=== PATIENT | male | born 1975 | race Hispanic/Latino ===

== ENCOUNTER 2017-10-13 09:36 | Inpatient (IN) | payer BC, OTHER ==
[2017-10-13 10:38] LABS: Bilirubin Negative (Negative); Blood, Urine Moderate (Negative); Glucose, Urine (Dipstick) Negative (Negative); Leukocyte Negative (Negative); Nitrite Negative (Negative); Protein, Urine (Dipstick) 100 mg/dL (Neg-Trace); Urobilinogen 0.2 mg/dL (0.2-1.0)
[2017-10-13 10:40] LABS: Clarity Clear (Clear)
[2017-10-13 10:50] LABS: Squamous Epithelial 0-3 HPF (0-3); WBC/HPF 0-3 HPF (0-3)
[2017-10-13 10:51] LABS: Bacteria/HPF None Seen HPF (None Seen); Crystals/HPF RARE AMORPH URATES HPF (Negative); Hyaline Casts/LPF 0-3 HYALINE CAST LPF (0-3 Hyaline)
--- NOTE | 2017-10-13 11:01 | RAD ---
CHEST ONE VIEW: HISTORY: Fever. COMPARISON: Chest, one view, 01/24/2017. FINDINGS: The dialysis catheter is in place, with the tip at the right atrium. There are linear opacities in b oth lower lobes, suggesting atelectasis. No air space consolidation or significant effusion. IMPRESSION: Dialysis catheter tip at the cavoatrial junction with some linear atelectasis in both lower lobes. N o significant fluid overload. POS: [facility]
--- NOTE | 2017-10-13 11:14 | CT ---
NONCONTRAST CT ABDOMEN AND PELVIS: 10/13/2017 HISTORY: Abdominal pain with vomiting and diarrhea. COMPARISON: 07/13/2013 FINDINGS: There is partial visualization of a hemodialysis catheter, with the tip at the level of the cavoatria l junction. There is linear bibasilar atelectasis and/or scarring. There is a coarse calcification seen in the right hepatic lobe, also seen on the prior study of 2013, unchanged. A tiny calcified granuloma is seen at the inferior aspect, right hepatic lobe. The spleen, pancreas, bilateral adrenal glands, and left kidney demonstrate a grossly normal nonenhan reginaldo CT appearance. There is a subcentimeter, gsz-qnwsl-lc-characterize, hypodense lesion in the superior pole right kidn ey. No renal or ureteral calculi are seen bilaterally. the urinary bladder is decompressed and not well evaluated on this exam. The appendix is visualized and normal in caliber. There is a trace amount of free fluid in the pelvis, of uncertain etiology. Prominent atherosclerotic vascular calcifications are seen within the iliac and femoral arteries. Previously noted colonic wall thickening and pericolonic inflammatory changes on the prior study in 2 013 have resolved. IMPRESSION: 1. Trace amount of free fluid in the pelvis of uncertain etiology. There are, otherwise, no acute f indings seen in the abdomen or pelvis on this nonenhanced CT scan examination. 2. Tiny pericardial effusion. 3. Subcentimeter qlx-[id number]-[id number]-characterize hypodense lesion, superior pole, right kidney. No renal o r ureteral calculi are visualized. 4. Prominent atherosclerotic vascular calcifications, which do appear advanced for the patient's age . 5. No CT evidence of appendicitis. 6. Linear bibasilar atelectasis versus scarring. POS: [facility]
[2017-10-13 11:16] LABS: #Eosinphils 0.1 thou/uL (0.0-0.7); #Lymphocytes 0.7 thou/uL (1.20-3.40); #Monocytes 0.6 thou/uL (0.11-0.59); #Neutrophils 8.9 thou/uL (1.40-6.50); %Basophils 0.2 % (0.0-1.0); %Eosinophils 0.6 % (0.0-10.0); %Monocytes 5.6 % (0.0-10.0); %Neutrophils 86.6 % (42.0-75.0); Mean Corpuscular HGB CONC 32.5 g/dL (32.0-36.0); Mean Corpuscular Hemoglobin 32.5 pg (27.0-31.0); Mean Platelet Volume 8.5 fL (7.4-10.4); Platelet Count 136 thou/uL (130-400); RBC Distribution Width 13.7 % (11.5-14.5); Red Blood Cell (RBC) Count 5.23 mill/uL (4.70-6.10); White Blood Cell (WBC) Count 10.3 thou/uL (4.8-10.8)
[2017-10-13 11:17] LABS: ALT (SGPT) 9 U/L (8-55); AST (SGOT) 20 U/L (5-34); Albumin 4.3 g/dL (3.5-5.0); Alkaline Phosphatase 85 U/L (40-150); Anion Gap 15 mmol/L (10-20); BUN (Urea Nitrogen) 34 mg/dL (8.9-20.6); Bilirubin, Total 0.9 mg/dL (0.2-1.2); Calc. Creatinine Clearance 0 mL/min (70-130); Calcium 9.5 mg/dL (7.8-10.44); Carbon Dioxide 31 mmol/L (22-29); Chloride 95 mmol/L (98-107); Estimated GFR-MDRD 13; Glucose 82 mg/dL (70-105); Potassium 3.4 mmol/L (3.5-5.1); Protein, Total 8.3 g/dL (6.0-8.3); Sodium 138 mmol/L (136-145)
[2017-10-13] MEDS ORDERED: Morphine 4 MG/ML VIAL ONE (11:28)
[2017-10-13] MEDS ORDERED: Acetaminophen 500 MG TAB ONE (11:57)
[2017-10-13] MEDS ORDERED: Piperacillin/Tazobactam 4.5 GM in Sodium Chloride 0.9% 100 ML IVPB SCH (12:30)
--- NOTE | 2017-10-13 14:10 | HP ---
PRIMARY CARE PHYSICIAN: Angelo Montoya M.D. CHIEF COMPLAINT: Chills, cramps and back pain. HISTORY OF PRESENT ILLNESS: Mr. Nuñez is a pleasant 42-year-old gentleman that has a history of end- stage renal disease secondary to lupus nephritis. He also has a history of hypertension. He was in his usual state of health until Friday when he started noticing some pain, he says in his spine and b oth legs and he was feeling like his legs were weak. He also noted some chills as well. He says rsoe t this is taken through his daughter who is acting as red lead burner. He also says that he was having so me burning or pain when he tries to urinate and felt like he needed to go to the bathroom frequently. They thought he might have a urinary tract infection or kidney infection. He had gone to dialysis today and developed a high fever and this is the reason he was brought to the emergency room for eval uation. The urinalysis from the ER just showed some blood, but no evidence of nitrates being positiv e or any leukocytes or bacteria. However, with a history of fever as well as the fact that the patie nt is relatively immunosuppressed, he is being admitted for further evaluation. The patient's other complaints include some nausea, but no vomiting, but the symptoms seem to be localized mainly to the upper and lower back as well as some urinary tract symptoms. He is on dialysis, so it is difficult t o tell whether or not he has any urinary retention. REVIEW OF SYSTEMS: CONSTITUTIONAL: He has had subjective fever as well as chills, but no night swea ts, no weight loss. He continues to have a good appetite. HEENT: No headaches, no dizziness, no vi sual changes. He does notice some drainage from the right ear as well as some ear pain. No sore thr oat or rhinorrhea. He does complain of some pain on the left side of his neck. The patient has some visual loss due to glaucoma and also some redness of the eyes, which he says is fairly chronic. PUL MONARY: No hemoptysis, no cough, no wheezing. CARDIOVASCULAR: He denies any chest pain, no shortne ss of breath, no PND, and orthopnea. GASTROINTESTINAL: No abdominal pain. He had some nausea, but no vomiting, no diarrhea. GENITOURINARY: He has urinary frequency, no hematuria. MUSCULOSKELETAL: He is complaining of some pain in the left flank and also complains of some weakness in his legs whe n these chills come on. NEUROLOGIC: No seizures. No stroke-like symptoms. SKIN AND INTEGUMENT: N o skin changes. No rash. PAST MEDICAL HISTORY: Significant for end-stage renal disease secondary to lupus nephritis, hyperten ayse, hypothyroidism, depression, systemic lupus, history of recurrent C. difficile infections. PAST SURGICAL HISTORY: He has had an AV fistula placed, inguinal hernia repair, right arm fracture, tube shunt and scleral patch in the right eye. He also has a temporary dialysis catheter in the left subclavian placed about 8 months ago. ALLERGIES: No known drug allergies. FAMILY HISTORY: Significant for lupus in a nephew and cancer in his father. SOCIAL HISTORY: He is . He has 4 children. He is a nonsmoker, nondrinker. CODE STATUS: FULL CODE. MEDICATIONS: Include prednisone 10 mg daily and levothyroxine 175 mcg a day. PHYSICAL EXAMINATION: GENERAL: He is alert and oriented. He appears to be in no acute distress. VITAL SIGNS: Blood pressure was 128/90, heart rate is 136, respiratory rate is 17, and temperature i s 99.9. HEENT: His pupils, he seems to have some mild exophthalmus and some conjunctival injections of both sclerae. Extraocular muscles are intact. Throat: There is no erythema. NECK: No adenopathy. His tympanic membranes, there was some erythema in the right drum as well as s ome whitish color behind the drum on the right. NECK: No bruits. LUNGS: Clear to auscultation, no wheezing, no rales. CARDIOVASCULAR: He has a normal S1, S2. I do not appreciate an S3 or S4. No murmurs, clicks or rub s. ABDOMEN: Obese, it is soft, it is nontender, nondistended. Positive for bowel sounds. There is no rebound, no guarding. EXTREMITIES: There is no edema. NEUROLOGIC: Neurologically, the exam is nonfocal. He is moving all extremities. SKIN: He does have some areas of hypopigmentation throughout. The areas are plaque-like and flat. LABORATORY DATA: Urinalysis is significant for moderate blood. White blood cell count is 10.3, hemo globin 17, hematocrit is 52.3, platelet count is 136. Sodium 138, potassium 3.4, chloride is 95, CO2 is 31, BUN 34, creatinine 5.09, glucose is 82. Lactic acid is 2.3. ASSESSMENT AND PLAN: 1. This is a pleasant 42-year-old gentleman who presents with fever and tachycardia, who is immunosu ppressed due to prednisone as well as having end-stage renal disease and lupus. He will be admitted for sepsis. The etiology is currently unknown. Concerning is that he has a temporary dialysis nam ter, although the catheter appears good and there is no induration or redness around it, it could be a source of infection as it has been there for several months. Also, concerning is the neck and lowe r back pain as well as a subjective weakness in his legs. He has a history of infection and fever in the past and it is possible he could have some type of seating of his spine. He will be admitted an d started on broad spectrum antibiotics. We will start with vancomycin and Zosyn. Cultures have arnie lipscomb been drawn from the emergency room. He will likely need some type of imaging study of his spine , possibly a CT scan or MRI and depending on culture results, he may need consideration for removal o f the temporary dialysis catheter. 2. End-stage renal disease. We will consult Dr. Bernard for maintenance of his current hemodialysis. 3. For hypothyroidism, we will continue his usual dose of levothyroxine. He appears to be euthyroid clinically. 4. Systemic lupus. He is on chronic steroid use or his chronic maintenance steroids and we will go ahead and continue the prednisone.
[2017-10-13] MEDS ORDERED: Sodium Chloride 0.9% 1,000 ML IV SCH (15:30)
[2017-10-13] MEDS ORDERED: Lorazepam 1 MG TAB PO PRN (15:37)
[2017-10-13] MEDS ORDERED: hydrALAZINE 20 MG/ML VIAL SLOW IVP PRN (15:37)
[2017-10-13] MEDS ORDERED: Vancomycin Sliding Scale 1 EACH FS ONE (15:45)
[2017-10-13] MEDS ORDERED: Vancomycin HCl 1.25 GM in Sodium Chloride 0.9% 250 ML 250 ML IVPB SCH (15:45)
[2017-10-13] MEDS ORDERED: Vancomycin HCl 750 MG in Sodium Chloride 0.9% 250 ML 250 ML IVPB SCH (15:45)
[2017-10-13] MEDS ORDERED: HOLD VANCOMYCIN FOR LEVEL >20 FS SCH (15:45)
[2017-10-13] MEDS ORDERED: Vancomycin HCl 1 GM in Premix Bag 1 BAG IVPB SCH (15:45)
[2017-10-13] MEDS ORDERED: Vancomycin HCl 500 MG in Sodium Chloride 0.9% 100 ML IVPB SCH (15:45)
[2017-10-13 15:55] VITALS: BMI 23.3
--- NOTE | 2017-10-13 19:45 | MRI ---
MRI OF THE CERVICAL SPINE WITHOUT CONTRAST: Comparison: None. History: Generalized neck and back pain with nausea. Patient is a dialysis patient. Completed dialysi s earlier today. Fever. Technique: Multiplanar, multisequence MRI images were obtained of the cervical spine without contrast . FINDINGS: The vertebral bodies and intervertebral discs demonstrate normal height and alignment. No marrow sign al abnormality is present. The visualized cord demonstrates normal signal throughout. The craniocervi bertram junction is unremarkable. The prevertebral and paraspinal soft tissues are unremarkable. No signi ficant bulge or protrusion is seen throughout the cervical spine. There is no neural foraminal or franklyn tral canal stenosis. No posterior facet arthrosis is seen. IMPRESSION: Normal MRI of the cervical spine. POS: [facility]
--- NOTE | 2017-10-13 19:54 | MRI ---
MRI OF THE THORACIC SPINE WITHOUT CONTRAST: Comparison: None. History: Generalized back pain and nausea. Fever. Patient is a dialysis patient and had dialysis ana m ier today. Technique: Multiplanar, multisequence MR images were obtained of the thoracic spine without contrast. FINDINGS: The vertebral bodies and intervertebral discs appear normal height and alignment without fracture or subluxation. No marrow signal abnormality is present. The visualized cord demonstrates normal signal throughout. The kidneys are small and contain small foci of high T2 signal which likely represents cysts. The oth er prevertebral and paraspinal soft tissues are unremarkable. No significant bulge or protrusion is seen throughout the thoracic spine. No neural foraminal stenosi s or central canal stenosis are seen. No posterior facet arthrosis. IMPRESSION: No significant thoracic spine abnormality. POS: [facility]
[2017-10-13] MEDS: Acetaminophen 325 MG TAB PO PRN (19:56)
--- NOTE | 2017-10-13 19:58 | MRI ---
MRI OF THE LUMBAR SPINE WITHOUT CONTRAST: Comparison: None. History: Generalized back pain with nausea. Fever. Technique: Multiplanar, multisequence MRI images were obtained of the lumbar spine without contrast. FINDINGS: The vertebral bodies and intervertebral discs demonstrate normal height and alignment without fractur e or subluxation. No marrow signal abnormality is present. The conus medullaris terminates normally a t L1. The kidneys are small and contain foci of high T2 signal which represents cysts. The other prevertebr al and paraspinal soft tissues are unremarkable. No significant bulge or protrusion is seen throughout the lumbar spine. The neural foramina are widel y patent. No central canal stenosis. No neural foraminal stenosis. IMPRESSION: No significant lumbar spine abnormality. POS: [facility]
[2017-10-13] MEDS: Piperacillin/Tazobactam 2.25 GM in Sodium Chloride 0.9% 100 ML IVPB SCH (21:11)
[2017-10-13] MEDS: Heparin 5,000 UNITS/ML VIAL SC SCH (21:11)
[2017-10-13] MEDS ORDERED: predniSONE 5 MG TAB PO SCH (21:30)
[2017-10-14] MEDS: Piperacillin/Tazobactam 2.25 GM in Sodium Chloride 0.9% 100 ML IVPB SCH ×3 (05:24→21:24)
[2017-10-14 05:49] LABS: Band 41 % (5-11); Hemoglobin 13.5 g/dL (14.0-18.0); Lymphocytes 12 % (21-51); MDiff Complete? YES; Mean Corpuscular HGB CONC 30.7 g/dL (32.0-36.0); Mean Corpuscular Hemoglobin 30.8 pg (27.0-31.0); Mean Platelet Volume 8.3 fL (7.4-10.4); Monocytes 4 % (0-10); Neutrophil 43 % (42-75); PLT Morphology Comment Appears Adequate; Platelet Count 130 thou/uL (130-400); RBC Distribution Width 13.8 % (11.5-14.5); Red Blood Cell (RBC) Count 4.39 mill/uL (4.70-6.10); Reflex for Review?? NO; White Blood Cell (WBC) Count 10.8 thou/uL (4.8-10.8)
[2017-10-14] MEDS ORDERED: Levothyroxine 175 MCG TAB PO SCH (06:00)
[2017-10-14 06:03] LABS: Anion Gap 15 mmol/L (10-20); BUN (Urea Nitrogen) 53 mg/dL (8.9-20.6); Calc. Creatinine Clearance 12 mL/min (70-130); Calcium 7.6 mg/dL (7.8-10.44); Carbon Dioxide 28 mmol/L (22-29); Chloride 99 mmol/L (98-107); Estimated GFR-MDRD 8; Glucose 154 mg/dL (70-105); Potassium 3.8 mmol/L (3.5-5.1); Sodium 138 mmol/L (136-145)
[2017-10-14] MEDS ORDERED: predniSONE 50 MG TAB PO SCH ×2 (08:00→10:00)
[2017-10-14] MEDS ORDERED: predniSONE 5 MG TAB PO SCH (08:00)
[2017-10-14] MEDS: Heparin 5,000 UNITS/ML VIAL SC SCH ×3 (08:35→21:24)
[2017-10-14] MEDS ORDERED: Vancomycin HCl 1 GM in Premix Bag 1 BAG IVPB SCH (09:00)
--- NOTE | 2017-10-14 09:15 | CON ---
DATE OF CONSULTATION: 10/13/2017 REASON FOR CONSULTATION: Stage 6 chronic kidney disease on maintenance hemodialysis. HISTORY OF PRESENT ILLNESS: This is a very pleasant 42-year-old gentleman who presented to the hospital after having fever and chills and low-grade fever with chills, cramp and back pain. The patient denies any nausea, vomiting, or chest pain. The patient was given a gram of Ancef. PAST MEDICAL HISTORY: Significant for , hypertension, AV fistula, temporary dialysis catheter, tunneled dialysis catheter, history of lupus nephritis. SOCIAL HISTORY: No alcohol or drug use. FAMILY HISTORY: Negative for ESRD. HOME MEDICATIONS: List reviewed. ALLERGIES: Reviewed. REVIEW OF SYSTEMS: A 15- point review of systems was performed and was negative except for positives noted above. GENERAL: Weakness- HEAD: Headache- NECK: No swelling or lumps. NOSE: No epistaxis or discharge. EYES: No diplopia or pain. RESPIRATORY: Dyspnea- CARDIOVASCULAR: Chest pain- GASTROINTESTINAL: Nausea- /REHAB SERVICES AIDE: Hematuria- MUSCULOSKELETAL: No joint pain. NEUROPSYCHIATIC SYSTEMS: No suicidal ideation. No ideation. SKIN: Denies any rash or ulcer. PHYSICAL EXAMINATION: GENERAL: The patient is awake, alert. VITAL SIGNS: Afebrile, pulse 136, breathing at 16, blood pressure 130/70. GENERAL APPEARANCE AND MENTAL STATUS: Fair. HEAD/NECK: Normocephalic. Atraumatic. EYES: EOMI. No deformity. EARS: Clear. No ulcers. NOSE: Intact. No lesions. MOUTH: Clear. No discharge. THROAT: Clear. No exudate. LUNGS: Clear. No crackles. CARDIAC: S1, S2. No rub. ABDOMEN: Benign. BS+. GENITALIA/RECTUM: Sandhu absent. BACK/EXTREMITIES: Edema 0+, Ulcer- NEUROLOGICAL: Alert and motor intact. SKIN: Rash- Bruise- LYMPHATICS: Edema- Ulcer- LABORATORY DATA: Hemoglobin 12.4, potassium 3.4. ASSESSMENT AND RECOMMENDATIONS: 1. Stage 6 chronic kidney injury, no indication for dialysis. 2. Hypertension, stable. 3. Anemia, stable. 4. Medication based on glomerular filtration rate appropriate. 5. Sepsis, management per primary team. [facility]
--- NOTE | 2017-10-14 09:16 | PDOC.PN ---
- Subjective Encounter Start Date: 10/14/17 Encounter Start Time: 09:16 Subjective: mild neck pain - Objective Resuscitation Status: Resuscitation Status FULL:Full Resuscitation MAR Reviewed: Yes Vital Signs & Weight: Vital Signs (12 hours) Temp Pulse Resp BP Pulse Ox 10/14/17 07:35 98.2 F 65 16 100 10/14/17 07:34 98.2 F 65 16 116/74 100 10/14/17 04:00 97.8 F 65 18 115/78 98 10/14/17 00:00 98.9 F 86 16 115/66 97 Weight Weight 142 lb 8 oz I&O: 10/13/17 10/14/17 10/15/17 06:59 06:59 06:59 Intake Total 621 Output Total 0 Balance 621 Result Diagrams: 10/14/17 04:11 10/14/17 04:11 Phys Exam - Physical Examination Neck: no JVD, supple, full ROM Respiratory: clear to auscultation bilateral Cardiovascular: RRR, no significant murmur Gastrointestinal: soft, non-tender, positive bowel sounds Musculoskeletal: no edema Dx/Plan (1) Fever Code(s): R50.9 - FEVER, UNSPECIFIED Status: Acute Qualifiers: Fever type: unspecified Qualified Code(s): R50.9 - Fever, unspecified (2) Back pain Code(s): M54.9 - DORSALGIA, UNSPECIFIED Status: Acute Qualifiers: Back pain location: back pain in unspecified location Chronicity: acute Back pain laterality: midline Qualified Code(s): M54.9 - Dorsalgia, unspecified (3) Secondary benign hypertension Code(s): I15.9 - SECONDARY HYPERTENSION, UNSPECIFIED Status: Acute (4) ESRD (end stage renal disease) Code(s): N18.6 - END STAGE RENAL DISEASE Status: Chronic (5) Hypertension Code(s): I10 - ESSENTIAL (PRIMARY) HYPERTENSION Status: Chronic (6) Hypothyroidism Code(s): E03.9 - HYPOTHYROIDISM, UNSPECIFIED Status: Chronic Comment: continue synthroid (7) Lupus erythematosus Code(s): L93.0 - DISCOID LUPUS ERYTHEMATOSUS Status: Chronic Comment: continue immunosuppresive medication of cellcelpt and plaquenil . stress dose steroids as he was on chronic prednisone - Plan HD per renal -: suspect neck pain secondary to SLE. spine series, blood C&S neg -: higher dose prednisone with taper -: discuss with renal * .
--- NOTE | 2017-10-14 11:28 | PRG ---
DATE OF SERVICE: 10/14/2017 SUBJECTIVE: This 42-year-old gentleman being seen for end-stage renal disease. The patient denies any nausea, vomiting or chest pain. PHYSICAL EXAMINATION: GENERAL: Patient is awake, alert. VITAL SIGNS: Afebrile, pulse 65, breathing 16, blood pressure 116/74. HEAD/NECK: Normocephalic. Atraumatic. EYES: EOMI. No deformity. EARS: Clear. No ulcers. NOSE: Intact. No lesions. MOUTH: Clear. No discharge. THROAT: Clear. No exudate. LUNGS: Clear. No crackles. CARDIAC: S1, S2. No rub. ABDOMEN: Benign. BS+. GENITALIA/RECTUM: Sandhu absent. BACK/EXTREMITIES: Edema 0+ Ulcer- NEUROLOGICAL: Alert and motor intact. SKIN: Rash- Bruise- LYMPHATICS: Edema- Ulcer- CONSTITUTIONAL: No fever or chills. SLABORATORY DATA: Show hemoglobin 13.5. ASSESSMENT AND PLAN: 1. Stage 6 chronic kidney disease, continue hemodialysis. 3. Hypertension, stable. 4. Anemia, stable. 5. Medications based on glomerular filtration rate are appropriate. [facility]
[2017-10-14] MEDS ORDERED: Vancomycin HCl 1.25 GM in Sodium Chloride 0.9% 250 ML 250 ML IVPB SCH (11:30)
[2017-10-15] MEDS: Piperacillin/Tazobactam 2.25 GM in Sodium Chloride 0.9% 100 ML IVPB SCH ×3 (05:36→20:57)
[2017-10-15] MEDS: Levothyroxine 175 MCG TAB PO SCH (05:36)
--- NOTE | 2017-10-15 08:42 | PDOC.PN ---
- Subjective Encounter Start Date: 10/15/17 Encounter Start Time: 08:41 Subjective: no complaints - Objective Resuscitation Status: Resuscitation Status FULL:Full Resuscitation MAR Reviewed: Yes Vital Signs & Weight: Vital Signs (12 hours) Temp Pulse Resp BP Pulse Ox 10/15/17 08:02 97.7 F 54 L 16 121/70 99 10/15/17 04:00 97.7 F 56 L 16 123/65 96 Weight Weight 149 lb 4.8 oz I&O: 10/14/17 10/15/17 10/16/17 06:59 06:59 06:59 Intake Total 621 1103 Output Total 0 Balance 621 1103 Result Diagrams: 10/14/17 04:11 10/14/17 04:11 Phys Exam - Physical Examination Neck: no JVD Respiratory: clear to auscultation bilateral Cardiovascular: RRR, no significant murmur Gastrointestinal: soft, positive bowel sounds Musculoskeletal: no edema Dx/Plan (1) Fever Code(s): R50.9 - FEVER, UNSPECIFIED Status: Acute Qualifiers: Fever type: unspecified Qualified Code(s): R50.9 - Fever, unspecified (2) Back pain Code(s): M54.9 - DORSALGIA, UNSPECIFIED Status: Acute Qualifiers: Back pain location: back pain in unspecified location Chronicity: acute Back pain laterality: midline Qualified Code(s): M54.9 - Dorsalgia, unspecified (3) Secondary benign hypertension Code(s): I15.9 - SECONDARY HYPERTENSION, UNSPECIFIED Status: Acute (4) ESRD (end stage renal disease) Code(s): N18.6 - END STAGE RENAL DISEASE Status: Chronic (5) Hypertension Code(s): I10 - ESSENTIAL (PRIMARY) HYPERTENSION Status: Chronic (6) Hypothyroidism Code(s): E03.9 - HYPOTHYROIDISM, UNSPECIFIED Status: Chronic Comment: continue synthroid (7) Lupus erythematosus Code(s): L93.0 - DISCOID LUPUS ERYTHEMATOSUS Status: Chronic Comment: continue immunosuppresive medication of cellcelpt and plaquenil . stress dose steroids as he was on chronic prednisone - Plan C&S neg, DC antibx -: home after HD * .
[2017-10-15] MEDS: Heparin 5,000 UNITS/ML VIAL SC SCH ×3 (08:43→22:04)
[2017-10-15] MEDS: predniSONE 50 MG TAB PO SCH (08:43)
[2017-10-15] MEDS ORDERED: Levothyroxine Sodium 50 MCG TAB PO SCH (09:00)
--- NOTE | 2017-10-15 10:26 | PRG ---
DATE OF SERVICE: 10/15/2017 SUBJECTIVE: This is a 42-year-old gentleman being seen for end-stage renal disease. Patient denies any nausea, vomiting, chest pain. PHYSICAL EXAMINATION: GENERAL: Patient is awake, alert. VITAL SIGNS: Afebrile, pulse 56, breathing 16, blood pressure 121/70. HEAD/NECK: Normocephalic. Atraumatic. EYES: EOMI. No deformity. EARS: Clear. No ulcers. NOSE: Intact. No lesions. MOUTH: Clear. No discharge. THROAT: Clear. No exudate. LUNGS: Clear. No crackles. CARDIAC: S1, S2. No rub. ABDOMEN: Benign. BS+. GENITALIA/RECTUM: Sandhu absent. BACK/EXTREMITIES: Edema 0+ Ulcer- NEUROLOGICAL: Alert and motor intact. SKIN: Rash- Bruise- LYMPHATICS: Edema- Ulcer- LABORATORY DATA: Show blood cultures from 10/13/2017 done at [facility] prior to getting antibiotics wer e positive for gram positive cocci in pairs and chains. ASSESSMENT AND RECOMMENDATIONS: 1. Stage 6 chronic disease. We will plan dialysis today. 2. Hypertension, stable. 3. Bacteremia. We will consult Infectious Disease and consult Dr. Marr for possible catheter wolf ge if recommended by ID. 4. Anemia, stable. 5. Medications based on glomerular filtration rate are appropriate.
[2017-10-15] MEDS ORDERED: Lidocaine 1% w/Epinephrine 1:100K 20 ML VIAL ONE (14:00)
--- NOTE | 2017-10-15 16:47 | PDOC.EVN ---
Event Note - Event Note Event Note: C&S at dialysis center pos, Dr Bernard has consulted ID and Gen Surg. formal Identificatgin pending
[2017-10-15] MEDS ORDERED: Vancomycin HCl 1.25 GM in Sodium Chloride 0.9% 250 ML 250 ML IVPB SCH (18:15)
[2017-10-15] MEDS ORDERED: Vancomycin Sliding Scale 1 EACH FS ONE (18:15)
[2017-10-15] MEDS ORDERED: Vancomycin HCl 500 MG in Sodium Chloride 0.9% 100 ML IVPB SCH (18:15)
[2017-10-15] MEDS ORDERED: Vancomycin HCl 750 MG in Sodium Chloride 0.9% 250 ML 250 ML IVPB SCH (18:15)
[2017-10-15] MEDS ORDERED: HOLD VANCOMYCIN FOR LEVEL >20 FS SCH (18:15)
[2017-10-15] MEDS ORDERED: Vancomycin HCl 1 GM in Premix Bag 1 BAG IVPB SCH ×2 (18:15→21:00)
[2017-10-15 18:32] LABS: Vancomycin, Trough 11.2 ug/mL
[2017-10-15] MEDS: Acetaminophen 325 MG TAB PO PRN (20:59)
--- NOTE | 2017-10-15 21:10 | HP ---
HISTORY OF PRESENT ILLNESS: Kenny Nuñez is a 42-year-old male dialyzes in [facility], followed by Dr. Bernard admitted by Hospitalist Service, this hospitalization for chills, cramps, and b ack pain. He has had positive blood cultures at the dialysis center. Cultures here have been negati ve. Patient received vancomycin. I have been asked to see him regarding removal of his hemodialysis catheter. In 04/2013, I performed a left-arm fistula, proximal radial artery inflow, outflow cephal ic vein upper arm. No communication of basilic vein noted. Retrograde antecubital vein flow preserv ed. Apparently, he has this fistula for a while, then it quit working. He was referred to [facility], where he had formation of the fistula what appears on exam was a basilic vein fis priyank, he states he uses for. Then, they were unable to use it. They place a hemodialysis catheter, left IJ Ltac, [facility], months past. ALLERGIES: None. HOME MEDICATIONS: Prednisone 10 mg a day, levothyroxine 125 mcg a day. MEDICATIONS: Hospitalization, Zosyn and vancomycin. IMAGING: Admission CAT scan of abdomen and pelvis, two days ago, unremarkable. MRI scan cervical, l umbar, and thoracic spine, unremarkable. PAST MEDICAL HISTORY: Lupus, end-stage renal disease, bacteremia from his hemodialysis catheter. PAST SURGICAL HISTORY: Left-arm AV fistula placed subsequent revision in [place] last year; right -arm fracture; scleral patch, right eye; left IJ hemodialysis catheter placed 8 months ago according to the records. PHYSICAL EXAMINATION: VITAL SIGNS: Temperature 98.2 degrees, 62, 18, 5 feet 6, 149 pounds, 24 BMI. LUNGS: Clear to auscultation. CARDIAC: Regular rate and rhythm without murmur or gallop. ABDOMEN: Soft, nontender. Left IJ cuffed tunnel hemodialysis catheter exit site without evident inf ection, left arm. Left upper arm cephalic vein fistula thrombosed; basilic vein, good thrill and bru it. ASSESSMENT AND PLAN: 1. Bacteremia from dialysis catheter would recommend removal of the dialysis catheter at the bedside tonight and replacement in the next day or two. He will need a left-arm basilic vein transposition fistula to gain a functioning fistula and this can be done under the same anesthesia. We will plan t hat tomorrow. He understands the risks of infection, bleeding, reoperation, thrombosis of his fistul a consents. Hopefully, we can move towards getting rid of his dialysis catheters. 2. Lupus. 3. End-stage renal disease.
--- NOTE | 2017-10-16 00:42 | OP ---
PREOPERATIVE DIAGNOSES: 1. Bacteremia. 2. End-stage renal disease, 8-month history of hemodialysis catheter, left IJ, positive blood cultur es at [facility]ialysis Center. POSTOPERATIVE DIAGNOSES: 1. Bacteremia. 2. End-stage renal disease, 8-month history of hemodialysis catheter, left IJ, positive blood cultur es at Dialysis Center. PROCEDURE: Removal of hemodialysis catheter, left IJ. SURGEON: Dr. Ron Marr. ANESTHESIA: 1% Xylocaine with epinephrine. PROCEDURE: At the patient's bedside after completing dialysis today, local anesthetic infiltrated in to skin and subcutaneous tissue about the catheter exit site and about another location midway throug h the catheter where suture was embedded in the skin. Local anesthetic infiltrated into the skin and subcutaneous tissue and suture removed. Catheter and cuff dissected free and removed. Pressure hel d until hemostatic. Catheter removed and discarded. Patient tolerated the procedure well.
[2017-10-16] MEDS: Levothyroxine 175 MCG TAB PO SCH (05:18)
[2017-10-16] MEDS: Piperacillin/Tazobactam 2.25 GM in Sodium Chloride 0.9% 100 ML IVPB SCH ×3 (05:19→21:26)
[2017-10-16] MEDS: predniSONE 50 MG TAB PO SCH (08:43)
[2017-10-16] MEDS: Heparin 5,000 UNITS/ML VIAL SC SCH ×3 (08:44→21:26)
--- NOTE | 2017-10-16 10:09 | PRG ---
DATE OF SERVICE: 10/16/2017 SUBJECTIVE: This is a 42-year-old gentleman being seen for end-stage renal disease. The patient den ies any nausea, vomiting or chest pain. PHYSICAL EXAMINATION: GENERAL: Patient is awake, alert. VITAL SIGNS: Afebrile, pulse 90, breathing 16, blood pressure 140/87. OBJECTIVE: See above. Awake, alert, in no acute distress. GENERAL APPEARANCE AND MENTAL STATUS: Fair. HEAD/NECK: Normocephalic. Atraumatic. EYES: EOMI. No deformity. EARS: Clear. No ulcers. NOSE: Intact. No lesions. MOUTH: Clear. No discharge. THROAT: Clear. No exudate. LUNGS: Clear. No crackles. CARDIAC: S1, S2. No rub. ABDOMEN: Benign. BS+. GENITALIA/RECTUM: Sandhu absent. BACK/EXTREMITIES: Edema 0+ Ulcer- NEUROLOGICAL: Alert and motor intact. SKIN: Rash- Bruise- LYMPHATICS: Edema- Ulcer- LABORATORY: Hemoglobin 13.5, creatinine 3.6. ASSESSMENT AND RECOMMENDATIONS: 1. Stage 6 chronic kidney disease. Continue dialysis Friday, Friday, and Friday. 2. Hypertension, stable. 3. Anemia, stable. 4. Bacteremia management by primary team.
[2017-10-16] MEDS: Mag-Al 1200 mg/1200 mg/30 ML UDCUP PO PRN ×2 (13:58→21:31)
--- NOTE | 2017-10-16 15:11 | PDOC.PN ---
- Subjective Encounter Start Date: 10/16/17 Encounter Start Time: 15:02 Mr. Nuñez was seen today in follow-up of sepsis. He does not have any complaints today. - Objective Resuscitation Status: Resuscitation Status FULL:Full Resuscitation MAR Reviewed: Yes Vital Signs & Weight: Vital Signs (12 hours) Temp Pulse Resp BP Pulse Ox 10/16/17 08:00 98.2 F 61 20 144/87 H 95 10/16/17 04:00 98.3 F 59 L 18 118/74 94 L Weight Weight 147 lb 4.301 oz I&O: 10/15/17 10/16/17 10/17/17 06:59 06:59 06:59 Intake Total 1103 800 360 Balance 1103 800 360 Result Diagrams: 10/14/17 04:11 10/14/17 04:11 Additional Labs: Accuchecks 10/16/17 10/16/17 10/15/17 11:38 05:12 20:23 POC Glucose 126 H 94 283 H Phys Exam - Physical Examination Constitutional: NAD HEENT: PERRLA Respiratory: no wheezing, no rales, no rhonchi, clear to auscultation bilateral Cardiovascular: RRR, no significant murmur Gastrointestinal: soft, non-tender, no distention Musculoskeletal: no edema Dx/Plan (1) Back pain Code(s): M54.9 - DORSALGIA, UNSPECIFIED Status: Acute Qualifiers: Back pain location: back pain in unspecified location Chronicity: acute Back pain laterality: midline Qualified Code(s): M54.9 - Dorsalgia, unspecified (2) Fever Code(s): R50.9 - FEVER, UNSPECIFIED Status: Acute Qualifiers: Fever type: unspecified Qualified Code(s): R50.9 - Fever, unspecified (3) Sepsis Code(s): A41.9 - SEPSIS, UNSPECIFIED ORGANISM Status: Acute Qualifiers: Sepsis type: sepsis due to unspecified organism Qualified Code(s): A41.9 - Sepsis, unspecified organism Comment: improved today. cont broad spectrum abx including IV flagyl and po vanc . C diff negative, Bcx negative. colitis on CT scan with hx of stool transplant for C diff. (4) ESRD (end stage renal disease) on dialysis Code(s): N18.6 - END STAGE RENAL DISEASE; Z99.2 - DEPENDENCE ON RENAL DIALYSIS Status: Chronic Comment: cont diaysis schedule (5) Lupus erythematosus Code(s): L93.0 - DISCOID LUPUS ERYTHEMATOSUS Status: Chronic Comment: continue immunosuppresive medication of cellcelpt and plaquenil . stress dose steroids as he was on chronic prednisone - Plan * sepsis syndrome- - improved- His temporary dialysis catheter has been removed * Blood cultures are negative, and it is unclear what the source was- await ID input * Plan is to have a new catheter placed tomorrow * ESRD- stable continue dialysis * SLE- stable.
--- NOTE | 2017-10-16 19:32 | PRG ---
DATE OF SERVICE: 10/16/2017 Mr. Nuñez is doing well today. Dialysis access postponed due to lack of OR time. Plan is to perform this tomorrow morning early. Plan is to place hemodialysis catheter and perform a basilic vein tyson sposition fistula, left arm. Questions answered. From a surgical standpoint, the patient will be di scharged home postoperatively. He can follow up in my office in 2-3 weeks for staple removal. [facility] ions answered.
[2017-10-17 05:42] LABS: Anion Gap 15 mmol/L (10-20); BUN (Urea Nitrogen) 65 mg/dL (8.9-20.6); Calc. Creatinine Clearance 14 mL/min (70-130); Calcium 7.6 mg/dL (7.8-10.44); Carbon Dioxide 26 mmol/L (22-29); Chloride 102 mmol/L (98-107); Estimated GFR-MDRD 10; Glucose 111 mg/dL (70-105); Potassium 3.6 mmol/L (3.5-5.1); Sodium 139 mmol/L (136-145)
[2017-10-17] MEDS: Piperacillin/Tazobactam 2.25 GM in Sodium Chloride 0.9% 100 ML IVPB SCH ×3 (06:25→21:11)
[2017-10-17] MEDS: Levothyroxine 175 MCG TAB PO SCH (06:26)
[2017-10-17] MEDS: predniSONE 50 MG TAB PO SCH (08:37)
[2017-10-17] MEDS: Heparin 5,000 UNITS/ML VIAL SC SCH ×3 (08:37→21:10)
[2017-10-17] MEDS ORDERED: Bupivacaine/Epinephrine 0.25% 30 ML VIAL ONE (09:57)
[2017-10-17] MEDS ORDERED: Sodium Chloride 0.9% 10 ML ONE (09:57)
[2017-10-17] MEDS ORDERED: Protamine Sulfate 50 MG/5 ML VIAL ONE (09:57)
[2017-10-17] MEDS ORDERED: Bupivacaine HCl 0.5%/Epinephrine 1:200,000/PF 30 ml Vial ONE (09:57)
[2017-10-17] MEDS ORDERED: Heparin 5,000 UNITS/ML VIAL ONE (09:57)
[2017-10-17] MEDS ORDERED: Heparin 10,000 UNITS/1 ML VIAL ONE ×2 (09:58→11:22)
[2017-10-17] MEDS ORDERED: Heparin 0 ML ONE (09:58)
[2017-10-17] MEDS ORDERED: Lidocaine 2% 10 ML INJ ONE (09:58)
[2017-10-17] MEDS ORDERED: Fentanyl 100 MCG/2 ML VIAL ONE ×2 (10:10→12:41)
[2017-10-17] MEDS ORDERED: Midazolam HCl 2 mg/2 ml Vial ONE ×2 (10:10→11:30)
[2017-10-17] MEDS ORDERED: Heparin 1,000 UNITS/ML VIAL ONE (11:11)
[2017-10-17] MEDS ORDERED: Propofol 500 MG/50 ML VIAL ONE ×3 (11:30→12:50)
[2017-10-17] MEDS ORDERED: Ketamine 50 MG/ML VIAL ONE (11:30)
[2017-10-17] MEDS ORDERED: Acetaminophen 500 MG TAB PO PRN (11:33)
[2017-10-17] MEDS ORDERED: traMADol HCl 50 MG TAB PO PRN ×2 (11:33)
--- NOTE | 2017-10-17 12:28 | PRG ---
DATE OF SERVICE: 10/17/2017 SUBJECTIVE: This is a 42-year-old gentleman being seen for end-stage renal disease. The patient den ies any nausea, vomiting or chest pain. PHYSICAL EXAMINATION: GENERAL: Patient is awake and alert. VITAL SIGNS: Afebrile, pulse 81, breathing 16, blood pressure 126/81. OBJECTIVE: See above. Awake, alert, in no acute distress. GENERAL APPEARANCE AND MENTAL STATUS: Fair. HEAD/NECK: Normocephalic. Atraumatic. EYES: EOMI. No deformity. EARS: Clear. No ulcers. NOSE: Intact. No lesions. MOUTH: Clear. No discharge. THROAT: Clear. No exudate. LUNGS: Clear. No crackles. CARDIAC: S1, S2. No rub. ABDOMEN: Benign. BS+. GENITALIA/RECTUM: Sandhu absent. BACK/EXTREMITIES: Edema 0+ Ulcer- NEUROLOGICAL: Alert and motor intact. SKIN: Rash- Bruise- LYMPHATICS: Edema- Ulcer- LABORATORY: Hemoglobin 13.5. IMPRESSION: LABORATORY: 1. Stage 6 chronic kidney disease, continue hemodialysis. 2. Hypertension. 3. Anemia, stable. 4. Medication based on glomerular filtration rate are appropriate.
[2017-10-17] MEDS ORDERED: Promethazine HCl 25 MG/ML VIAL SLOW IVP PRN (13:50)
[2017-10-17] MEDS ORDERED: Ondansetron HCl/PF 4 MG/2 ML Vial IVP PRN (13:50)
[2017-10-17] MEDS ORDERED: Promethazine HCl 25 MG/ML VIAL IM PRN (13:50)
--- NOTE | 2017-10-17 14:45 | OP ---
DATE OF OPERATION: 10/17/2017 PREOPERATIVE DIAGNOSES: End-stage renal disease, dialysis fistula malfunction left arm (cephalic vei n fistula placed many years ago occluded and because of insurance reasons, the patient went to [facility] to have a new fistula and he is in need of basilic vein transition fistula which he has not foll owed up to have done). POSTOPERATIVE DIAGNOSES: End-stage renal disease, dialysis fistula malfunction left arm (cephalic ve in fistula placed many years ago occluded and because of insurance reasons, the patient went to [facility] to have a new fistula and he is in need of basilic vein transition fistula which he has not fol lowed up to have done) with patent right internal jugular vein, but outflow obstruction due to chroni c dialysis catheter use. PROCEDURE PERFORMED: Successful cannulation of right internal jugular vein, but the J-wire would not thread. Successful placement of left internal jugular cuffed tunnel hemodialysis catheter, angiodyn amics precurved. Initially right subclavian vein length use replaced with a left subclavian vein [facility] due to inadequate length. Left arm basilic vein transposition fistula note excellent caliber bas ilic vein. SURGEON: Dr. Ron Marr ANESTHESIA: Regional TIVA. Local 0.25% Marcaine with epinephrine, 30 mL, mixed with 0.5% Marcaine w ith epinephrine, 30 mL, mixed with 2% Xylocaine, 10 mL total volume mixture used. Ultrasound fluoros copy used for the placement of catheters. PROCEDURE IN DETAIL: Patient was taken to the operating room where under IV sedation regional anesth esia, neck, chest and left upper extremity prepped with ChloraPrep, draped in routine fashion. Local anesthetic infiltrated into skin and subcutaneous tissue about the operative sites. Trocar catheter under ultrasound guidance cannulated the right internal jugular vein with J-wire would not thread an d he had collateral veins over his right chest suggesting outflow internal jugular vein occlusion. T his was removed and left internal jugular vein was cannulated with trocar catheter. J-wire threaded. Trocar catheter removed. Skin incised and enlarged sharply. Stab incision made over the left ches t and using the tunneling device, precurved angiodynamics cuffed tunnel hemodialysis catheter tunnele d between the two incisions placed, securing the catheter with 2 interrupted sutures of 3-0 nylon. B iopatch sterile dressing applied. The smaller medium sized dilators placed over the J-wire into the internal jugular vein and removed. Dilator and pull-away sheath placed over the J-wire in superior v michael cava under fluoroscopic visualization and dilator and J-wire removed. Catheter placed with pull- away sheath and fluoroscopic images revealed as noted above. The catheter was too short and thus thi s catheter was removed over the J-wire and a new longer catheter placed and brought out through the s jassi tunnel, secured as described and dilator and pull-away sheath placed over the new J-wire into the superior vena cava under fluoroscopic visualization. Dilator and J-wire removed. Catheter placed w ith pull-away sheath and pull-away sheath removed. Fluoroscopic catheter noted to be in good positio n. Platysma approximated with 4-0 Monocryl, skin with subdermal 4-0 Monocryl and DermaGlue applied. Each port aspirated blood and flushed with saline solution and heparinized saline solution of 1000 u nits of heparin per mL indicated volume of the port. Sterile dressings applied. Incision was made in the proximal left forearm below the antecubital fossa. Across the antecubital f mich, the medial upper arm to the axilla, carried through skin and subcutaneous tissue and deep fasci a, mobilizing the basilic vein, dividing branch between 4-0 and 3-0 silk ties and protecting nerves. Vein was mobilized, marked with a marker for orientation and a 12 mm [place]-Wick tunneler used to cre ate a tunnel over the anterior arm and the patient was given 6000 units of heparin intravenously. Af ter adequate circulation time, the arterial inflow (which appeared to be from our original proximal a rtery inflow from the cephalic vein) was mobilized and clamped with atraumatic vascular clamps and di vided and vein flushed with heparinized saline solution. It was very large, distended nicely and the re were no leaks. It was tunneled through the tunnel and then flushed again with heparinized saline solution, noted to flow easily without problems. End-to-end vein anastomosis created after both ends spatulated using continuous suture of 6-0 Prolene completing anastomosis. Releasing vascular clamp, there was excellent flow in the fistula. Good hemostasis noted and obtained with 6-0 Prolene. Rosa M ent was given 50 mg of protamine intravenously. Subcutaneous tissues approximated with 3-0 Monocryl after noting good hemostasis and SurgiSeal placed in the harvest bed. Skin was approximated with sta ples. Sterile dressing applied.
[2017-10-17] MEDS ORDERED: Heparin 10,000 UNITS/ 10 ML VIAL ONE (14:51)
--- NOTE | 2017-10-17 14:51 | PDOC.PN ---
- Subjective Encounter Start Date: 10/17/17 Encounter Start Time: 14:49 Mr. Nuñez was seen today in follow-up. He is feeling a bit tired after surgery, but otherwise ok. He is anxious to go home. - Objective Resuscitation Status: Resuscitation Status FULL:Full Resuscitation MAR Reviewed: Yes Vital Signs & Weight: Vital Signs (12 hours) Temp Pulse Resp BP Pulse Ox 10/17/17 08:00 98.0 F 51 L 18 126/81 96 Weight Weight 147 lb 11.355 oz I&O: 10/16/17 10/17/17 10/18/17 06:59 06:59 06:59 Intake Total 800 1120 Output Total 125 Balance 800 995 Result Diagrams: 10/14/17 04:11 10/17/17 04:48 Additional Labs: Accuchecks 10/16/17 16:16 POC Glucose 166 H Phys Exam - Physical Examination HEENT: PERRLA + conjuctival injection- bilaterally Respiratory: no wheezing, no rales, no rhonchi, clear to auscultation bilateral Cardiovascular: RRR, no significant murmur, no rub Gastrointestinal: soft, non-tender, positive bowel sounds Musculoskeletal: no edema Dx/Plan (1) Back pain Code(s): M54.9 - DORSALGIA, UNSPECIFIED Status: Acute Qualifiers: Back pain location: back pain in unspecified location Chronicity: acute Back pain laterality: midline Qualified Code(s): M54.9 - Dorsalgia, unspecified (2) Fever Code(s): R50.9 - FEVER, UNSPECIFIED Status: Acute Qualifiers: Fever type: unspecified Qualified Code(s): R50.9 - Fever, unspecified (3) Sepsis Code(s): A41.9 - SEPSIS, UNSPECIFIED ORGANISM Status: Acute Qualifiers: Sepsis type: sepsis due to unspecified organism Qualified Code(s): A41.9 - Sepsis, unspecified organism Comment: improved today. cont broad spectrum abx including IV flagyl and po vanc . C diff negative, Bcx negative. colitis on CT scan with hx of stool transplant for C diff. (4) ESRD (end stage renal disease) on dialysis Code(s): N18.6 - END STAGE RENAL DISEASE; Z99.2 - DEPENDENCE ON RENAL DIALYSIS Status: Chronic Comment: cont diaysis schedule (5) Lupus erythematosus Code(s): L93.0 - DISCOID LUPUS ERYTHEMATOSUS Status: Chronic Comment: continue immunosuppresive medication of cellcelpt and plaquenil . stress dose steroids as he was on chronic prednisone - Plan * Sepsis- due to gram negative bacteria ( cultures from Dialysis )- continue Zosyn * ESRD- stable. * Patient has a new temporary dialysis nam ter placed today- * His medical case was discussed with Dr. Philippe, he plans to see the patient this evening, and will decide on Outpatient antibiotics and how long * Hopefully home this evening
[2017-10-17 15:42] LABS: Vancomycin, Random 21.3 ug/mL (See Comment)
--- NOTE | 2017-10-17 15:53 | RAD ---
CHEST 1 VIEW: HISTORY: PACU. Central line placement. COMPARISON: Chest 1 view 10/13/17. FINDINGS: Dialysis catheter is in place with tip in the inferior SVC. Multiple left-sided arm surgical jahaira . No pneumothorax. There is volume loss in the lungs. Heart size is mildly enlarged, although may be sequelae of technique. Small bilateral pleural effusions. IMPRESSION: 1. Cardiomegaly with small effusions and likely some early pulmonary venous congestion. 2. Apical capping of both lung apices, likely pleural fluid. 3. Dialysis catheter tip in the inferior superior vena cava. 4. New surgical jahaira along the left arm. POS: [facility]
--- NOTE | 2017-10-17 16:28 | CON ---
DATE OF CONSULTATION: 10/17/2017 REASON FOR CONSULTATION: Fever. 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 He also has a history of herpetic esophagitis and depression. The patient was brou ght into the hospital this time on 10/13/2017 with a history of weak legs, chills, and dysuria. He w ent to dialysis and 2 sets of blood cultures submitted, developed fever and dialysis, and was brought to the emergency room and admitted. Initial findings showed BP 120/90, heart rate 136, respirations 17, temperature 99.9 and on exam, there was evidence of exophthalmus, injected conjunctivae. Lungs were clear. Heart examination was normal. He was awake and oriented. Initial laboratory results in cluded a WBC count 10.3, hemoglobin 17, platelets 136 with 86% neutrophils. Sodium 138, creatinine 7 .56. Liver profile normal. Albumin 4.3, globulin 4.0. Urinalysis was fairly unremarkable except fo r some hematuria and proteinuria. The patient was given IV vancomycin and Zosyn. PAST MEDICAL HISTORY: Systemic lupus erythematosus; end-stage renal disease, secondary to lupus neph ritis; herpetic esophagitis; apparently, he has a diagnosis of thyroid illness reportedly. PAST SURGICAL HISTORY: Inguinal hernia repair, dialysis catheter placement, AV fistula placement. FAMILY HISTORY: Systemic lupus erythematosus and diabetes. MEDICATIONS: Prednisone 10 mg daily, levothyroxine, and the antibiotics mentioned above. SOCIAL HISTORY: Never smoker, , 4 children. PHYSICAL EXAMINATION: VITAL SIGNS: T-max 103, defervesced after that, currently 98; blood pressure 120/81; pulse 51; respi rations 18; O2 sat 96%. SKIN EXAM: Showed a surgical site, left upper extremity. The port which has been removed from the s ubclavian area and another catheter placed in the ipsilateral location right below the original one. The patient has no lymphadenopathy. No other skin lesions noted. Quite impressive exophthalmus wit h conjunctival hyperemia. HEENT: Pupils are equal and reactive. Oral cavity moist, quite a few teeth in place with expected d ecay and gum disease. NECK: Supple, jugular vein distention, mild tenderness at the site of the new catheter placement. BACK: No C-spine tenderness. LUNGS: With symmetric clear breath sounds. CARDIOVASCULAR: S1 and S2, regular rate. No S3 or S4. ABDOMEN: Soft, not distended or tender. No ascites. No bladder distention. EXTREMITIES: No joint inflammatory activity. NEUROLOGIC: He is awake, oriented, follows commands. LABORATORY DATA: Reports we have sodium 138 and creatinine 7.56. The other findings noted above. W león cell count 10.8, hemoglobin 13.5, platelets 130. Microbiology: Two sets of blood cultures, no growth at 48 hours here in the hospital. At dialysis on the , 2 sets of blood cultures with 2/2 positive for gram-positive cocci in clusters. ASSESSMENT: Systemic lupus erythematosus with end-stage nephritis and hemodialysis through a tunnele d catheter, which most likely has become colonized by Staphylococcus aureus, possibly methicillin-res istant Staphylococcus aureus. Endocarditis appears to be less likely. No other sites of involvement are apparent at this time. Recommend vancomycin sliding scale until 11/15/2016. Follow up labs. R epeat blood cultures. If recurrent blood cultures positive, then he will need a transthoracic echoca rdiogram and a COLEMAN. Hopefully, the AV fistula will mature quick enough to allow removal of the curre nt hemodialysis catheter and decrease the risk of colonization. I have discussed with the patient ab out the signs and symptoms to be looking for regarding possibility of systemic dissemination to other sites, particularly the spine infection and associated back pain, and patient to contact us if that develops. Follow up in the clinic in 3-4 weeks.
[2017-10-17] MEDS: HYDROcodone/Acetaminophen 5/325 mg Tablet PO PRN (20:09)
[2017-10-18] MEDS: HYDROcodone/Acetaminophen 5/325 mg Tablet PO PRN (04:48)
[2017-10-18] MEDS: Levothyroxine 175 MCG TAB PO SCH (06:02)
[2017-10-18] MEDS: Piperacillin/Tazobactam 2.25 GM in Sodium Chloride 0.9% 100 ML IVPB SCH (06:02)
[2017-10-18] MEDS: predniSONE 50 MG TAB PO SCH (08:27)
[2017-10-18] MEDS: Heparin 5,000 UNITS/ML VIAL SC SCH (08:27)
--- NOTE | 2017-10-18 10:05 | PDOC.PN ---
- Subjective Encounter Start Date: 10/18/17 Encounter Start Time: 10:03 Mr. Nuñez was seen today in follow-up. He does not have any complaints, other than some soreness in his left arm. - Objective Resuscitation Status: Resuscitation Status FULL:Full Resuscitation MAR Reviewed: Yes Vital Signs & Weight: Vital Signs (12 hours) Temp Pulse Resp BP Pulse Ox 10/18/17 07:32 98.3 F 77 16 133/91 H 96 10/18/17 05:28 98.4 F 73 14 136/94 H 96 10/18/17 00:00 97.4 F L 79 14 118/76 94 L Weight Weight 146 lb I&O: 10/17/17 10/18/17 10/19/17 06:59 06:59 06:59 Intake Total 1120 581 Output Total 125 Balance 995 581 Result Diagrams: 10/14/17 04:11 10/17/17 04:48 Phys Exam - Physical Examination HEENT: PERRLA Respiratory: no wheezing, no rales, clear to auscultation bilateral Cardiovascular: RRR, no significant murmur Gastrointestinal: soft, non-tender, positive bowel sounds Musculoskeletal: no edema Dx/Plan (1) Back pain Code(s): M54.9 - DORSALGIA, UNSPECIFIED Status: Acute Qualifiers: Back pain location: back pain in unspecified location Chronicity: acute Back pain laterality: midline Qualified Code(s): M54.9 - Dorsalgia, unspecified (2) Fever Code(s): R50.9 - FEVER, UNSPECIFIED Status: Acute Qualifiers: Fever type: unspecified Qualified Code(s): R50.9 - Fever, unspecified (3) Sepsis Code(s): A41.9 - SEPSIS, UNSPECIFIED ORGANISM Status: Acute Qualifiers: Sepsis type: sepsis due to unspecified organism Qualified Code(s): A41.9 - Sepsis, unspecified organism Comment: improved today. cont broad spectrum abx including IV flagyl and po vanc . C diff negative, Bcx negative. colitis on CT scan with hx of stool transplant for C diff. (4) ESRD (end stage renal disease) on dialysis Code(s): N18.6 - END STAGE RENAL DISEASE; Z99.2 - DEPENDENCE ON RENAL DIALYSIS Status: Chronic Comment: cont diaysis schedule (5) Lupus erythematosus Code(s): L93.0 - DISCOID LUPUS ERYTHEMATOSUS Status: Chronic Comment: continue immunosuppresive medication of cellcelpt and plaquenil . stress dose steroids as he was on chronic prednisone - Plan * Staph sepsis- improved with Vanocmycin * Outpatient arrangements with dialysis have been completed * Stable for discharge home..
--- NOTE | 2017-10-18 10:21 | DIS ---
DATE OF ADMISSION: 10/13/2017 DATE OF DISCHARGE: 10/18/2017 PRIMARY CARE PHYSICIAN: Angelo Montoya M.D. DISCHARGE DISPOSITION: Home. PRIMARY DISCHARGE DIAGNOSES: 1. Staph aureus sepsis. 2. End-stage renal disease on hemodialysis. 3. Lupus nephritis. 4. Systemic lupus. DISCHARGE MEDICATIONS: Vancomycin on a sliding scale with dialysis and to continue prednisone 10 mg daily as well as Synthroid 175 mcg daily. PROCEDURES DONE DURING ADMISSION: The patient had an MRI of the cervical, thoracic and lumbar spine which was negative. CODE STATUS: FULL CODE. ALLERGIES: No known drug allergies. HOSPITAL COURSE: Mr. Nuñez is a pleasant 42-year-old gentleman who presented to the emergency room w ith complaints of cramps and chills as well as back pain. He was admitted and found to have Staph se psis. Cultures from our hospital stay were negative; however, he had cultures drawn in the dialysis center prior to him being sent over to the hospital for high fever and these grew out Staph aureus. The patient was seen by Dr. Philippe and it was recommended that he undergo vancomycin with dialysis unt il 11/15/2016 along with weekly CBCs and CRPS. The patient also had the removal of a temporary dialy sis catheter which he had had in place for about 6-8 months and had the placement of a left IJ tempor janeth catheter. The patient is being discharged home and to have close followup with his primary care physician in 1-2 weeks.
--- NOTE | 2017-10-18 11:28 | PRG ---
DATE OF SERVICE: 10/18/2017 SUBJECTIVE: A 42-year-old gentleman being seen for end-stage renal disease. The patient denies any nausea, vomiting or chest pain. PHYSICAL EXAMINATION: GENERAL: Patient is awake, alert. VITAL SIGNS: Afebrile, pulse 75, breathing 16, blood pressure 133/91. HEAD/NECK: Normocephalic. Atraumatic. EYES: EOMI. No deformity. EARS: Clear. No ulcers. NOSE: Intact. No lesions. MOUTH: Clear. No discharge. THROAT: Clear. No exudate. LUNGS: Clear. No crackles. CARDIAC: S1, S2. No rub. ABDOMEN: Benign. BS+. GENITALIA/RECTUM: Sandhu absent. BACK/EXTREMITIES: Edema 0+ Ulcer- NEUROLOGICAL: Alert and motor intact. SKIN: Rash- Bruise- LYMPHATICS: Edema- Ulcer- LABORATORY DATA: Show hemoglobin 13.5. ASSESSMENT AND PLAN: 1. Stage 6 chronic kidney disease, continue hemodialysis. 2. Hypertension, stable. 3. Anemia, stable. 4. Sepsis. Continue vancomycin till 11/07/2017.
[2017-10-18 11:35] VITALS: BP 130/71; TEMP 97.5
== END 2017-10-18 11:32 | disposition home or self-care (01) | DRG 252 ==
LOC: ERS 09:36 → 2NO 13:11 → T4-B 10-15 13:41
PROVIDERS: ADMIT Internal Medicine; ATTEND Internal Medicine
PROC: 05PYX3Z Removal of Infusion Device from Upper Vein, External Approach (ICD-10-PCS; 2017-10-13)
PROC: 5A1D70Z Performance of Urinary Filtration, Intermittent, Less than 6 Hours Per Day (ICD-10-PCS; 2017-10-15)
PROC: 5A1D70Z Performance of Urinary Filtration, Intermittent, Less than 6 Hours Per Day (ICD-10-PCS; 2017-10-15)
PROC: 02HV33Z Insertion of Infusion Device into Superior Vena Cava, Percutaneous Approach (ICD-10-PCS; principal; 2017-10-17)
PROC: 03120ZD Bypass Innominate Artery to Upper Arm Vein, Open Approach (ICD-10-PCS; 2017-10-17)
PROC: B5181ZA Fluoroscopy of Superior Vena Cava using Low Osmolar Contrast, Guidance (ICD-10-PCS; 2017-10-17)
DX: E78.5 Hyperlipidemia, unspecified; Z79.52 Long term (current) use of systemic steroids; E03.9 Hypothyroidism, unspecified; N18.6 End stage renal disease; M54.9 Dorsalgia, unspecified; Z99.2 Dependence on renal dialysis; L93.0 Discoid lupus erythematosus; Z79.899 Other long term (current) drug therapy; A41.01 Sepsis due to Methicillin susceptible Staphylococcus aureus; T82.7XXA Infection and inflammatory reaction due to other cardiac and vascular devices, implants and grafts, initial encounter; F32.9 Major depressive disorder, single episode, unspecified; I15.9 Secondary hypertension, unspecified; H40.9 Unspecified glaucoma; T82.898A Other specified complication of vascular prosthetic devices, implants and grafts, initial encounter
CPT/HCPCS: 36415; 36416; 71045; 72141; 72146; 72148; 74176; 80048; 80053; 80202; 81003; 81015; 83605; 85025; 87040; 87086; 87804; 90935; 93005; 96361; 96365; 96375; A4216; C1752; C1769; G0257; J0670; J1644; J2001; J2250; J2270; J2543; J2704; J2720; J3010; J3370; J7050

== ENCOUNTER → 2017-10-21 | Day surgery (SDC) | payer BC ==
[~2017-10-21] MED LIST: Bupivacaine HCl 0.5%/Epinephrine 1:200,000/PF 30 ml Vial ONE; CEFAZOLIN/Water 2 GM/20 ML SYRINGE ONE; Dexamethasone 20 MG/5 ML VIAL ONE; Fentanyl 100 MCG/2 ML VIAL ONE; Fentanyl 250 MCG/5 ML VIAL ONE; Heparin 1,000 UNITS/ML VIAL ONE; Heparin 10,000 UNITS/ 10 ML VIAL ONE; Heparin 5,000 UNITS/ML VIAL ONE; Ioversol 68 % 50 ML VIAL ONE; Labetalol 100 MG/20 ML MDV ONE; Lidocaine 2% 10 ML INJ ONE; Midazolam HCl 2 mg/2 ml Vial ONE; Ondansetron HCl/PF 4 MG/2 ML Vial ONE; PROPOFOL 200 MG/20 ML VIAL ONE; Protamine Sulfate 50 MG/5 ML VIAL ONE; ePHEDrine/0.9% NaCl/PF SYRINGE 50 mg/10 ml ONE
[2017-10-21 10:53] LABS: #Eosinphils 0.2 thou/uL (0.0-0.7); #Lymphocytes 1.2 thou/uL (1.20-3.40); #Monocytes 0.6 thou/uL (0.11-0.59); #Neutrophils 8.3 thou/uL (1.40-6.50); %Eosinophils 1.9 % (0.0-10.0); %Lymphocytes 11.9 % (21.0-51.0); %Monocytes 5.6 % (0.0-10.0); %Neutrophils 80.6 % (42.0-75.0); Hemoglobin 12.4 g/dL (14.0-18.0); Mean Corpuscular HGB CONC 31.7 g/dL (32.0-36.0); Mean Corpuscular Hemoglobin 31.9 pg (27.0-31.0); Mean Platelet Volume 6.7 fL (7.4-10.4); Platelet Count 294 thou/uL (130-400); RBC Distribution Width 13.3 % (11.5-14.5); Red Blood Cell (RBC) Count 3.88 mill/uL (4.70-6.10); White Blood Cell (WBC) Count 10.3 thou/uL (4.8-10.8)
[2017-10-21 11:10] LABS: Anion Gap 14 mmol/L (10-20); BUN (Urea Nitrogen) 41 mg/dL (8.9-20.6); Calc. Creatinine Clearance 0 mL/min (70-130); Calcium 7.7 mg/dL (7.8-10.44); Carbon Dioxide 26 mmol/L (22-29); Chloride 101 mmol/L (98-107); Estimated GFR-MDRD 11; Glucose 76 mg/dL (70-105); Sodium 137 mmol/L (136-145)
--- NOTE | 2017-10-22 00:26 | HP ---
HISTORY: Kenny Nuñez last week underwent a basilic vein transposition fistula appears to be wor augusto well. He stated had a good thrill and bruit through the weekend when he noticed it did not. He presents to the emergency room with a thrombosed, left basilic vein fistula. Plan is to go to the o perating room to evaluate this to try to salvage his fistula. He understands risks and benefits and consents.
--- NOTE | 2017-10-22 00:31 | OP ---
DATE OF OPERATION: 10/21/2017 PREOPERATIVE DIAGNOSIS: Thrombosed left upper arm basilic vein transposition fistula that was placed last week. POSTOPERATIVE DIAGNOSIS: Thrombosed left upper arm basilic vein transposition fistula that was place d last week with technical problems with the fistula. PROCEDURES: Revision of left upper arm basilic vein transposition fistula with intraoperative angiog margarito, #5 Junaid thrombectomy and revision. ANESTHESIA: General anesthesia. SURGEON: Dr. Marr. Local 0.5% Marcaine with epinephrine 60 mL with 2% Xylocaine, 40 mL of volume mixture used. PROCEDURE IN DETAIL: Patient was taken to the operating room where under general anesthesia, left up per extremity was prepped with ChloraPrep in routine fashion. Menard removed about the antecubital fossa and then distal upper arm, exposing the venous anastomosis from the fistula at the arterial inf low from the proximal radial artery. The #5 Junaid catheter placed in arterial inflow and there was an excellent arterial inflow. Patient given 6000 units of heparin intravenously and vascular clamp applied. The #5 Junaid catheter placed and there seemed to be some obstruction of the axilla. The jahaira removed from the axilla and the Monocryl were removed, exposed the axilla. There seemed to b e a narrowing in the axilla, but with some manipulation, the #5 Junaid catheter was passed. There w as an area that was bleeding, #6-0 Prolene used for hemostasis later after all the tip catheter was p laced through this small defect into the outflow and angiograms obtained using contrast revealed free flow of contrast in the outflow. Subclavian vein and superior vena cava without obstruction. At th is point, the 6-0 Prolene were used to close this defect. Patient had been given 6000 units heparin intravenously. The #5 Junaid catheter was then passed and passed easily into the subclavian vein, b ut there seemed to be an area in the distal third of the upper arm into the tunnel portion of the fis priyank that seemed to meet some obstruction. This was marked as angiograms revealed narrowing here. I ncision was made and carried down through skin and subcutaneous tissue in the tunnel and the fistula evaluating, there seemed to be torsion here. There also seemed to be fibrotic waist, which was incis ed and relieved. The distal portion of the fistula then brought out of the tunnel and re-tunneled an d after rotating 180 degrees, this seemed to relieve the obstruction. Repeat angiograms revealed ind eed the obstruction was relieved. [id number] anastomosis recreated after revising the spatulated p ortion and continuous suture of 6-0 Prolene used for the anastomosis. Once this was completed, arter ial inflow was released. There was excellent flow in the fistula. Doppler signal revealed excellent flow in the fistula throughout and palpation revealed a good thrill and with occlusion of the axilla . Good pulsation with release of this obstruction. Good hemostasis noted. The patient given 25 mg of protamine. Surgicel used near all the suture lines. Wounds were irrigated. Subcutaneous tissues approximated with 3-0 Monocryl, skin with jahaira. All of the tunnel site, this was approximated by approximating subcutaneous tissue with 3-0 Monocryl, skin with subdermal 4-0 Monocryl, and DermaGlue applied. Sterile dressing applied.
--- NOTE | 2017-10-22 09:50 | RAD ---
LEFT UPPER EXTREMTIY ANGIOGRAM INTEROPERATIVE FLUOROSCOPY: History: Hemodialysis. FINDINGS: Intraoperative fluoroscopy is provided for angiogram as performed by Dr. Marr. Spot fluoroscopic im ages show injection and opacification of a patent dominant venous structure of the left upper arm wit hout extravasation. There is good venous outflow without significant stenosis apparent. Large caliber left internal jugular dialysis type catheter is partially visualized. Fluoro time = 1 minute 24 seconds. POS: [facility]
== END ==
LOC: ERS 08:42 → SDC 11:13
PROVIDERS: ATTEND Specialist
PROC: 05WY07Z Revision of Autologous Tissue Substitute in Upper Vein, Open Approach (ICD-10-PCS; principal; 2017-10-21)
PROC: 03C63ZZ Extirpation of Matter from Left Axillary Artery, Percutaneous Approach (ICD-10-PCS; principal; 2017-10-21)
DX: T82.868A Thrombosis due to vascular prosthetic devices, implants and grafts, initial encounter (principal); T82.590A Other mechanical complication of surgically created arteriovenous fistula, initial encounter; I12.0 Hypertensive chronic kidney disease with stage 5 chronic kidney disease or end stage renal disease; N18.6 End stage renal disease; E03.9 Hypothyroidism, unspecified; E78.5 Hyperlipidemia, unspecified; Z99.2 Dependence on renal dialysis; Z79.899 Other long term (current) drug therapy
CPT/HCPCS: 76001; 80048; 85025; 96374; J0131; J0670; J1100; J1644; J2250; J2405; J2704; J2720; J3010; Q9967

== ENCOUNTER 2017-11-13 09:29 | Outpatient (CLI) | payer BC ==
--- NOTE | 2017-11-13 11:02 | RAD ---
CHEST 2 VIEWS: HISTORY: Night sweats. COMPARISON: 10/17/17. FINDINGS: Cardiac silhouette is upper limits of normal in size. Pulmonary vasculature is unremarkable. Medias tinum is midline with left internal jugular dialysis-type catheter. There is subtle obscuration of the posterior aspect of the left hemidiaphragm on the lateral view. L ungs are otherwise hyperinflated. IMPRESSION: Subtle left posterior basilar infiltrate. Clinical correlation regarding other signs and symptoms of left basilar pneumonitis is required. Please consider short-term radiographic followup after medica l treatment to evaluate for resolution. POS: [facility]
== END 2017-11-13 09:30 | disposition home or self-care (01) ==
LOC: RAD 09:29
PROVIDERS: ATTEND Family Medicine
DX: R61 Generalized hyperhidrosis (principal); R91.8 Other nonspecific abnormal finding of lung field
CPT/HCPCS: 71046

== ENCOUNTER 2019-06-28 09:12 | Emergency (ER) | payer BC ==
[2019-06-28] MEDS ORDERED: Aspirin 325 MG TAB ONE (09:51)
[2019-06-28 10:04] LABS: #Eosinphils 0.1 thou/uL (0.0-0.7); #Monocytes 0.3 thou/uL (0.11-0.59); #Neutrophils 3.3 thou/uL (1.40-6.50); %Eosinophils 2.7 % (0.0-10.0); %Lymphocytes 21.7 % (21.0-51.0); %Monocytes 6.5 % (0.0-10.0); Hemoglobin 13.2 g/dL (14.0-18.0); Mean Corpuscular HGB CONC 33.8 g/dL (32.0-36.0); Mean Corpuscular Hemoglobin 32.5 pg (27.0-31.0); Mean Platelet Volume 7.3 fL (7.4-10.4); Platelet Count 174 thou/uL (130-400); RBC Distribution Width 11.7 % (11.5-14.5); Red Blood Cell (RBC) Count 4.06 mill/uL (4.70-6.10); White Blood Cell (WBC) Count 4.7 thou/uL (4.8-10.8)
--- NOTE | 2019-06-28 10:19 | RAD ---
PORTABLE CHEST 1 VIEW: Date: 06/28/19 Time: 0919 hours HISTORY: Chest pain. Tachycardia. FINDINGS/IMPRESSION: Comparison made with exam of 11/13/17. The left-sided venous catheter has been removed in the interim. The heart size is normal. The lungs a re expanded without focal areas of consolidation, pneumothoraces, or pleural effusions. Nodular densi ty overlying the right lower chest is likely nipple shadow. Confirming this with nipple markers is re commended. CODE T. POS: [facility]
[2019-06-28 10:23] LABS: ALT (SGPT) 15 U/L (8-55); AST (SGOT) 28 U/L (5-34); Albumin 4.5 g/dL (3.5-5.0); Alkaline Phosphatase 86 U/L (40-110); Anion Gap 15 mmol/L (10-20); BUN (Urea Nitrogen) 22 mg/dL (8.9-20.6); Bilirubin, Total 0.9 mg/dL (0.2-1.2); CK (CPK) 116 U/L (30-200); Calc. Creatinine Clearance 0 mL/min (70-130); Calcium 9.8 mg/dL (7.8-10.44); Carbon Dioxide 32 mmol/L (22-29); Chloride 97 mmol/L (98-107); Estimated GFR-MDRD 16; Globulin 4.9 g/dL (2.4-3.5); Glucose 79 mg/dL (70-105); Potassium 3.7 mmol/L (3.5-5.1); Protein, Total 9.4 g/dL (6.0-8.3); Sodium 140 mmol/L (136-145)
== END 2019-06-28 10:48 | disposition home or self-care (01) ==
LOC: ERS 09:12
DX: R00.2 Palpitations (principal); E78.5 Hyperlipidemia, unspecified; E03.9 Hypothyroidism, unspecified; I12.0 Hypertensive chronic kidney disease with stage 5 chronic kidney disease or end stage renal disease; N18.6 End stage renal disease; Z79.899 Other long term (current) drug therapy
CPT/HCPCS: 71045; 80053; 82550; 83880; 84484; 85025; 93005

== ENCOUNTER 2021-08-07 07:36 | Outpatient (CLI) | payer BC | END 2021-08-07 07:37 | disposition home or self-care (01) | LOC: ULT 07:36 | PROVIDERS: ATTEND Internal Medicine Nephrology | DX: N28.9 Disorder of kidney and ureter, unspecified (principal) | CPT/HCPCS: 76770 ==

== ENCOUNTER 2021-09-10 19:00 | Emergency (ER) | payer BC ==
[2021-09-10] MEDS ORDERED: Bacitracin 1 PK ONE (19:30)
== END 2021-09-10 19:50 | disposition home or self-care (01) ==
LOC: ERS 19:00
DX: M70.22 Olecranon bursitis, left elbow (principal); I12.0 Hypertensive chronic kidney disease with stage 5 chronic kidney disease or end stage renal disease; N18.6 End stage renal disease; E03.9 Hypothyroidism, unspecified; E78.5 Hyperlipidemia, unspecified
CPT/HCPCS: 99283

== ENCOUNTER 2021-09-21 07:47 | Emergency (ER) | payer BC ==
[2021-09-21] MEDS ORDERED: Morphine 4 MG/ML VIAL ONE ×2 (08:24→13:36)
[2021-09-21] MEDS ORDERED: Ondansetron PF 4 MG/2 ML Vial ONE (08:24)
[2021-09-21 08:26] LABS: #Lymphocytes 0.2 thou/uL (1.20-3.40); %Basophils 0.7 % (0.0-1.0); %Eosinophils 0.1 % (0.0-10.0); %Monocytes 0.1 % (0.0-10.0); %Neutrophils 95.1 % (42.0-75.0); Hemoglobin 10.8 g/dL (14.0-18.0); Mean Corpuscular HGB CONC 31.9 g/dL (32.0-36.0); Mean Corpuscular Hemoglobin 32.1 pg (27.0-31.0); Mean Platelet Volume 6.2 fL (7.4-10.4); Platelet Count 214 thou/uL (130-400); RBC Distribution Width 12.6 % (11.5-14.5); Red Blood Cell (RBC) Count 3.37 mill/uL (4.70-6.10); White Blood Cell (WBC) Count 5.2 thou/uL (4.8-10.8)
[2021-09-21 08:48] LABS: ALT (SGPT) 16 U/L (8-55); AST (SGOT) 57 U/L (5-34); Albumin 2.9 g/dL (3.5-5.0); Alkaline Phosphatase 52 U/L (40-110); Anion Gap 15 mmol/L (10-20); BUN (Urea Nitrogen) 45 mg/dL (8.9-20.6); Bilirubin, Total 0.6 mg/dL (0.2-1.2); Calc. Creatinine Clearance 0 mL/min (70-130); Calcium 8.5 mg/dL (7.8-10.44); Carbon Dioxide 30 mmol/L (22-29); Chloride 93 mmol/L (98-107); Globulin 4.2 g/dL (2.4-3.5); Glucose 90 mg/dL (70-105); Potassium 4.2 mmol/L (3.5-5.1); Protein, Total 7.1 g/dL (6.0-8.3); Sodium 134 mmol/L (136-145)
[2021-09-21 09:10] LABS: CKMB 1.3 ng/mL (0-6.6)
[2021-09-21 13:36] LABS: CKMB 0.7 ng/mL (0-6.6)
== END 2021-09-21 14:22 | disposition home or self-care (01) ==
LOC: ERS 07:47
DX: R52 Pain, unspecified (principal); Z79.899 Other long term (current) drug therapy; E03.9 Hypothyroidism, unspecified; E78.5 Hyperlipidemia, unspecified; N18.6 End stage renal disease; I12.0 Hypertensive chronic kidney disease with stage 5 chronic kidney disease or end stage renal disease
CPT/HCPCS: 36415; 71045; 80053; 82553; 83605; 84484; 85025; 93005; 94760; 96374; 96375; 96376; J2270; J2405

== ENCOUNTER 2022-09-06 09:48 | Day surgery (SDC) | payer BC ==
[2022-09-05 11:10] VITALS: BMI 22.4
[2022-09-06 11:35] LABS: #Lymphocytes 0.6 thou/uL (1.20-3.40); #Monocytes 0.1 thou/uL (0.11-0.59); #Neutrophils 1.5 thou/uL (1.40-6.50); %Basophils 0.1 % (0.0-1.0); %Eosinophils 0.4 % (0.0-10.0); %Lymphocytes 26.3 % (21.0-51.0); %Neutrophils 67.2 % (42.0-75.0); Hemoglobin 11.6 g/dL (14.0-18.0); Mean Corpuscular HGB CONC 31.5 g/dL (32.0-36.0); Mean Corpuscular Hemoglobin 33.1 pg (27.0-31.0); Mean Platelet Volume 7.8 fL (7.4-10.4); Platelet Count 142 10x3/uL (130-400); RBC Distribution Width 13.1 % (11.5-14.5); White Blood Cell (WBC) Count 2.3 10x3/uL (4.8-10.8)
[2022-09-06] MEDS ORDERED: Fentanyl 100 MCG/2 ML VIAL ONE (11:41)
[2022-09-06] MEDS ORDERED: Bupivacaine PF 0.5% 30 ML VIAL ONE (11:41)
[2022-09-06 11:48] LABS: Anion Gap 17 mmol/L (10-20); BUN (Urea Nitrogen) 61 mg/dL (8.9-20.6); Calc. Creatinine Clearance 10 mL/min (70-130); Calcium 8.5 mg/dL (7.8-10.44); Carbon Dioxide 26 mmol/L (22-29); Chloride 100 mmol/L (98-107); Estimated GFR 8; Glucose 71 mg/dL (70-105); Potassium 4.9 mmol/L (3.5-5.1); Sodium 138 mmol/L (136-145)
[2022-09-06] MEDS ORDERED: Lidocaine 2% PF 5 ML VIAL ONE (12:06)
[2022-09-06] MEDS ORDERED: Protamine Sulfate 50 MG/5 ML VIAL ONE (12:06)
[2022-09-06] MEDS ORDERED: Heparin 5,000 UNITS/ML VIAL ONE (12:06)
[2022-09-06] MEDS ORDERED: Bupivacaine/Epinephrine 0.25% 30 ML VIAL ONE (12:06)
[2022-09-06] MEDS ORDERED: fentaNYL PF 100 MCG/2 ML SYRINGE ONE (12:21)
[2022-09-06] MEDS ORDERED: Clindamycin/D5W 600 mg/50 ml Premix Bag ONE (12:26)
[2022-09-06] MEDS ORDERED: ePHEDrine 50 MG/ML VIAL ONE (12:42)
[2022-09-06] MEDS ORDERED: Ondansetron PF 4 MG/2 ML Vial ONE (12:42)
[2022-09-06] MEDS ORDERED: Dexamethasone 20 MG/5 ML VIAL ONE (12:42)
[2022-09-06] MEDS ORDERED: Lidocaine 1% PF 5 ML VIAL ONE (12:42)
[2022-09-06] MEDS ORDERED: PROPOFOL 200 MG/20 ML VIAL ONE (12:42)
== END 2022-09-06 15:35 | disposition home or self-care (01) ==
LOC: SDC 09:48
PROVIDERS: ATTEND Specialist
PROC: 05BC0ZZ Excision of Left Basilic Vein, Open Approach (ICD-10-PCS; principal; 2022-09-06)
DX: T82.898A Other specified complication of vascular prosthetic devices, implants and grafts, initial encounter (principal); I12.0 Hypertensive chronic kidney disease with stage 5 chronic kidney disease or end stage renal disease; N18.6 End stage renal disease; D63.1 Anemia in chronic kidney disease; M19.90 Unspecified osteoarthritis, unspecified site; E78.00 Pure hypercholesterolemia, unspecified; E07.9 Disorder of thyroid, unspecified; M32.9 Systemic lupus erythematosus, unspecified; Z79.52 Long term (current) use of systemic steroids; Z79.890 Hormone replacement therapy; Z79.899 Other long term (current) drug therapy; Z88.1 Allergy status to other antibiotic agents; Z88.2 Allergy status to sulfonamides; Z99.2 Dependence on renal dialysis; Y81.3 Surgical instruments, materials and general- and plastic-surgery devices (including sutures) associated with adverse incidents
CPT/HCPCS: 80048; 85025; J1100; J1644; J2001; J2405; J2704; J2720; J3010; J3490; S0020

== ENCOUNTER 2022-09-12 21:16 | Inpatient (IN) | payer BC ==
[2022-09-12] MEDS ORDERED: Calcium Chloride 1 GM/10 ML Abboject SYRINGE ONE (21:41)
[2022-09-12] MEDS ORDERED: Sodium Bicarb 50 MEQ/50 ML VIAL ONE (21:41)
[2022-09-12] MEDS ORDERED: Ondansetron PF 4 MG/2 ML Vial ONE (22:06)
[2022-09-12] MEDS ORDERED: Morphine 4 MG/ML VIAL ONE (22:06)
[2022-09-12 22:13] LABS: #Lymphocytes 0.4 thou/uL (1.20-3.40); #Monocytes 0.1 thou/uL (0.11-0.59); #Neutrophils 2.3 thou/uL (1.40-6.50); %Basophils 0.7 % (0.0-1.0); %Monocytes 2.9 % (0.0-10.0); %Neutrophils 82.4 % (42.0-75.0); Hemoglobin 11.4 g/dL (14.0-18.0); Mean Corpuscular HGB CONC 32.3 g/dL (32.0-36.0); Mean Corpuscular Hemoglobin 33.3 pg (27.0-31.0); Mean Platelet Volume 7.8 fL (7.4-10.4); Platelet Count 158 10x3/uL (130-400); RBC Distribution Width 12.8 % (11.5-14.5); Red Blood Cell (RBC) Count 3.42 mill/uL (4.70-6.10); White Blood Cell (WBC) Count 2.7 10x3/uL (4.8-10.8)
[2022-09-12 22:33] LABS: ALT (SGPT) 11 U/L (8-55); AST (SGOT) 41 U/L (5-34); Albumin 3.1 g/dL (3.5-5.0); Alkaline Phosphatase 71 U/L (40-110); Anion Gap 19 mmol/L (10-20); BUN (Urea Nitrogen) 68 mg/dL (8.9-20.6); Bilirubin, Total 0.8 mg/dL (0.2-1.2); Calc. Creatinine Clearance 0 mL/min (70-130); Carbon Dioxide 27 mmol/L (22-29); Chloride 93 mmol/L (98-107); Estimated GFR 6; Globulin 3.8 g/dL (2.4-3.5); Glucose 78 mg/dL (70-105); Magnesium 2.5 mg/dL (1.6-2.6); Protein, Total 6.9 g/dL (6.0-8.3); Sodium 133 mmol/L (136-145)
[2022-09-12 22:36] LABS: Potassium 6.1 mmol/L (3.5-5.1)
[2022-09-12 22:55] LABS: CKMB 0.8 ng/mL (0-6.6)
[2022-09-12] MEDS ORDERED: Insulin Regular 300 UNITS/3 ML VIAL ONE (23:03)
[2022-09-12] MEDS ORDERED: Dextrose 50% Abboject 50 ML SYRINGE ONE (23:03)
[2022-09-12] MEDS ORDERED: Albuterol 2.5 MG/0.5 ML NEB ONE (23:04)
[2022-09-12] MEDS ORDERED: Ondansetron ODT 4 MG TAB SL PRN (23:45)
[2022-09-12] MEDS ORDERED: Ondansetron PF 4 MG/2 ML Vial IVP PRN (23:45)
[2022-09-12] MEDS ORDERED: Acetaminophen 325 MG TAB PO PRN (23:45)
[2022-09-13] MEDS ORDERED: Calcium Carbonate 500 MG ChewTAB PO PRN (00:08)
[2022-09-13] MEDS ORDERED: Senokot S 8.6-50 MG TAB PO PRN (00:08)
[2022-09-13] MEDS ORDERED: Bumetanide 1 MG/4 ML VIAL IVP SCH (00:15)
[2022-09-13 01:18] LABS: Troponin I 0.057 ng/mL (< 0.028)
[2022-09-13 04:55] LABS: Troponin I 0.059 ng/mL (< 0.028)
[2022-09-13 05:10] LABS: HBSAB Concentration Less than 8.00 mIU/mL; HBSAg Index 0.27 S/CO (0-0.99); Hep B Core Total Ab Non-Reactive (NonReactive); Hep B Core Total Index 0.09 S/CO (0-0.79); Hep B Surf AB Non-Reactive (NonReactive); Hep B Surf Ag Non-Reactive S/CO (NonReactive); Hep C IgG Ab Non-Reactive (NonReactive); Hep C Index 0.17 S/CO (0-0.79)
[2022-09-13] MEDS: Levothyroxine Sodium 125 MCG TAB PO SCH (06:29)
[2022-09-13 07:29] LABS: Anion Gap 14 mmol/L (10-20); BUN (Urea Nitrogen) 31 mg/dL (8.9-20.6); Calc. Creatinine Clearance 14 mL/min (70-130); Carbon Dioxide 29 mmol/L (22-29); Chloride 91 mmol/L (98-107); Estimated GFR 12; Glucose 235 mg/dL (70-105); Potassium 4.2 mmol/L (3.5-5.1); Sodium 130 mmol/L (136-145)
[2022-09-13] MEDS: NIFEdipine XL 60 MG TAB PO SCH (10:06)
[2022-09-13] MEDS: Heparin 5,000 UNITS/ML VIAL SC SCH ×3 (10:06→21:42)
[2022-09-13] MEDS: Famotidine 20 MG TAB PO SCH ×2 (10:06→21:40)
[2022-09-13] MEDS: predniSONE 5 MG TAB PO SCH (10:06)
[2022-09-13 11:57] VITALS: BMI 15.9
[2022-09-13] MEDS: Sodium Chloride 0.9% 250 ML IV SCH ×2 (17:32→17:34)
[2022-09-14 05:13] LABS: #Lymphocytes 0.4 thou/uL (1.20-3.40); #Monocytes 0.1 thou/uL (0.11-0.59); #Neutrophils 1.2 thou/uL (1.40-6.50); %Eosinophils 0.3 % (0.0-10.0); %Lymphocytes 22.8 % (21.0-51.0); %Monocytes 6.7 % (0.0-10.0); %Neutrophils 70.2 % (42.0-75.0); Hemoglobin 9.6 g/dL (14.0-18.0); Mean Corpuscular HGB CONC 31.8 g/dL (32.0-36.0); Mean Corpuscular Hemoglobin 33.2 pg (27.0-31.0); Mean Platelet Volume 8.1 fL (7.4-10.4); Platelet Count 122 10x3/uL (130-400); RBC Distribution Width 12.8 % (11.5-14.5); Red Blood Cell (RBC) Count 2.88 mill/uL (4.70-6.10); White Blood Cell (WBC) Count 1.8 10x3/uL (4.8-10.8)
[2022-09-14 05:43] LABS: Anion Gap 15 mmol/L (10-20); BUN (Urea Nitrogen) 56 mg/dL (8.9-20.6); Calc. Creatinine Clearance 10 mL/min (70-130); Calcium 7.6 mg/dL (7.8-10.44); Carbon Dioxide 28 mmol/L (22-29); Chloride 94 mmol/L (98-107); Estimated GFR 8; Glucose 73 mg/dL (70-105); Potassium 5.3 mmol/L (3.5-5.1); Sodium 132 mmol/L (136-145)
[2022-09-14] MEDS: Levothyroxine Sodium 125 MCG TAB PO SCH (05:48)
[2022-09-14 08:27] VITALS: TEMP 99
[2022-09-14] MEDS: Heparin 5,000 UNITS/ML VIAL SC SCH ×2 (09:24→14:54)
[2022-09-14] MEDS: predniSONE 5 MG TAB PO SCH (09:24)
[2022-09-14] MEDS: Famotidine 20 MG TAB PO SCH (09:24)
[2022-09-14 15:02] VITALS: BP 160/86
[2022-09-14] MEDS: NIFEdipine XL 60 MG TAB PO SCH (15:10)
== END 2022-09-14 16:55 | disposition home or self-care (01) | DRG 193 ==
LOC: ERS 21:16 → 2SW 23:49 → OBSVTOIN 09-14 14:21
PROVIDERS: ADMIT Student in an Organized Health Care Education/Training Program; ATTEND Internal Medicine
PROC: 5A1D70Z Performance of Urinary Filtration, Intermittent, Less than 6 Hours Per Day (ICD-10-PCS; principal; 2022-09-14)
DX: J18.9 Pneumonia, unspecified organism (principal); N18.6 End stage renal disease; I12.0 Hypertensive chronic kidney disease with stage 5 chronic kidney disease or end stage renal disease; N25.81 Secondary hyperparathyroidism of renal origin; E87.5 Hyperkalemia; E87.70 Fluid overload, unspecified; Z20.822 Contact with and (suspected) exposure to COVID-19; D63.1 Anemia in chronic kidney disease; E03.9 Hypothyroidism, unspecified; M32.9 Systemic lupus erythematosus, unspecified; E78.5 Hyperlipidemia, unspecified; Z99.2 Dependence on renal dialysis; Z88.1 Allergy status to other antibiotic agents; Z88.2 Allergy status to sulfonamides; Z79.890 Hormone replacement therapy; Z79.52 Long term (current) use of systemic steroids; Z79.899 Other long term (current) drug therapy
CPT/HCPCS: 36415; 36416; 71045; 80048; 80053; 82553; 83605; 83735; 83880; 84443; 84484; 85025; 86704; 87040; 90935; 93005; 96374; 96375; G0257; G0378; J1644; J1815; J1956; J2270; J2405; J7050; J7512; J7611; J7999; U0003; U0005

== ENCOUNTER 2022-09-22 19:54 | Emergency (ER) | payer OTHER, BC ==
[2022-09-23] MEDS ORDERED: HYDROcodone/Acetaminophen 5/325 mg Tablet ONE (00:30)
== END 2022-09-23 00:50 | disposition home or self-care (01) ==
LOC: ERS 19:54
DX: S33.5XXA Sprain of ligaments of lumbar spine, initial encounter (principal); V89.2XXA Person injured in unspecified motor-vehicle accident, traffic, initial encounter
CPT/HCPCS: 72125; 72128; 72131

== ENCOUNTER 2022-10-13 08:27 | Inpatient (IN) | payer BC ==
[2022-10-13] MEDS ORDERED: LORazepam 2 MG/ML SYR.(CARPUJECT) ONE (08:44)
[2022-10-13] MEDS ORDERED: levETIRAcetam 500 MG/5 ML VIAL ONE (08:48)
[2022-10-13 09:16] LABS: Actual Bicarbonate (HCO3v) 15 mEq/L (22-28); Base Excess -8.6 mEq/L (-2.0 to +3.0); Chloride (VBG) 99 mmol/L (98-106); Hemoglobin (Hb) 11.1 g/dL (13.1-17.2); Potassium (VBG) 3.51 mmol/L (3.70-5.30); Sodium 135.3 mmol/L (133-146); pH (venous) 7.38 (7.32-7.43)
[2022-10-13 09:17] LABS: Calcium, Ionized (venous) 0.79 mmol/L (1.16-1.32)
[2022-10-13 09:24] LABS: #Lymphocytes 0.5 thou/uL (1.20-3.40); #Monocytes 0.2 thou/uL (0.11-0.59); #Neutrophils 4.6 thou/uL (1.40-6.50); %Basophils 0.1 % (0.0-1.0); %Eosinophils 0.1 % (0.0-10.0); %Lymphocytes 9.5 % (21.0-51.0); %Monocytes 3.4 % (0.0-10.0); %Neutrophils 86.9 % (42.0-75.0); Hemoglobin 10.7 g/dL (14.0-18.0); Mean Corpuscular HGB CONC 30.2 g/dL (32.0-36.0); Mean Corpuscular Hemoglobin 32.8 pg (27.0-31.0); Mean Platelet Volume 9.1 fL (7.4-10.4); Platelet Count 114 10x3/uL (130-400); RBC Distribution Width 13.8 % (11.5-14.5); Red Blood Cell (RBC) Count 3.26 mill/uL (4.70-6.10); White Blood Cell (WBC) Count 5.3 10x3/uL (4.8-10.8)
[2022-10-13] MEDS ORDERED: Vancomycin 1 GM/200 ML (FROZEN) BAG ONE (09:26)
[2022-10-13] MEDS ORDERED: Cefepime 2 GM VIAL ONE (09:27)
[2022-10-13 09:33] LABS: INR-International Normal Ratio 1.1; PTT 35.5 sec (22.9-36.1); Prothrombin Time 15.1 sec (12.0-14.7)
[2022-10-13 09:59] LABS: ALT (SGPT) 30 U/L (8-55); AST (SGOT) 89 U/L (5-34); Acetaminophen Less than 10.0 mcg/mL (10.0-30.0); Albumin 2.2 g/dL (3.5-5.0); Alcohol Less than 10 mg/dL (Less than 10); Alkaline Phosphatase 53 U/L (40-110); Anion Gap 26 mmol/L (10-20); BUN (Urea Nitrogen) 82 mg/dL (8.9-20.6); Bilirubin, Total 0.6 mg/dL (0.2-1.2); Calc. Creatinine Clearance 0 mL/min (70-130); Calcium 7.1 mg/dL (7.8-10.44); Carbon Dioxide 14 mmol/L (22-29); Chloride 101 mmol/L (98-107); Estimated GFR 6; Globulin 3.6 g/dL (2.4-3.5); Glucose 100 mg/dL (70-105); Lipase 72 U/L (8-78); Magnesium 2.2 mg/dL (1.6-2.6); Potassium 3.6 mmol/L (3.5-5.1); Protein, Total 5.8 g/dL (6.0-8.3); Salicylate Less than 8.0 mg/dL (15.0-30.0); Sodium 137 mmol/L (136-145)
[2022-10-13 10:24] LABS: Amphetamine Not Detected (NotDetected); Barbiturates Screen Not Detected (NotDetected); Benzodiazepine Screen Not Detected (NotDetected); Cocaine Metabolite Screen Not Detected (NotDetected); Methadone Not Detected (NotDetected); Methamphetamine Not Detected (NotDetected); Opiate Screen Not Detected (NotDetected); Oxycodone Screen Not Detected (NotDetected); Phencyclidine (PCP) Not Detected (NotDetected); THC/Cannabinoid Screen Not Detected (NotDetected); Tricyclic Screen Not Detected (NotDetected)
[2022-10-13] MEDS ORDERED: Ondansetron PF 4 MG/2 ML Vial ONE (10:27)
[2022-10-13 10:44] LABS: Bacteria/HPF None Seen HPF (None Seen); Bilirubin Negative (Negative); Blood, Urine 2+ (Negative); Clarity Clear (Clear); Glucose, Urine (Dipstick) 70 mg/dL (Negative); Ketone, Urine Negative (Negative); Leukocyte Negative Leu/uL (Negative); Nitrite Negative (Negative); Protein, Urine (Dipstick) 100 mg/dL (Neg-Trace); Specific Gravity, Urine 1.014 (1.002-1.036); Squamous Epithelial 0-3 HPF (0-3); Urobilinogen Normal mg/dL (Less than 2)
[2022-10-13 10:47] LABS: Analyzer IN Cardio ER; Base Excess (BEa) -4.1 mEq/L (-2.0 to +3.0); CO2 Tension 33.2 mmHg (35.0-45.0); Calcium, Ionized (arterial) 0.98 mmol/L (1.12-1.30); Hemoglobin (Hb) 10.9 g/dL (14.0-18.0); O2 Tension (PaO2), arterial 69.6 mmHg (80.0-100.0); Potassium - ABG Lab 3.73 mmol/L (3.70-5.30)
[2022-10-13 10:48] LABS: CKMB 8.2 ng/mL (0-6.6)
[2022-10-13 10:53] LABS: Puncture Site RRA
[2022-10-13 11:06] LABS: Transitional Epithelial 0-3 HPF (None Seen)
[2022-10-13] MEDS ORDERED: niCARdipine 40MG In NaCl 40 MG/200 ML BAG IVPB SCH (11:15)
[2022-10-13] MEDS ORDERED: RENALLY ADJUST ANTIBIOTICS IVPB PRN (11:23)
[2022-10-13] MEDS ORDERED: Iopamidol 370 76% 100 ML VIAL ONE (11:24)
[2022-10-13] MEDS ORDERED: Vancomycin 1 GM in Premix Bag 1 BAG IVPB SCH (11:30)
[2022-10-13] MEDS ORDERED: niCARdipine 25 MG in Sodium Chloride 0.9% 250 ML 250 ML IVPB SCH (13:00)
[2022-10-13] MEDS ORDERED: Vancomycin Hemodialysis Sliding Scale FS SCH (13:15)
[2022-10-13 13:19] LABS: Lactic Acid 4.2 mmol/L (0.5-2.2)
[2022-10-13] MEDS ORDERED: Ondansetron PF 4 MG/2 ML Vial IVP PRN (13:47)
[2022-10-13 14:59] LABS: Troponin I 8.525 ng/mL (< 0.028)
[2022-10-13] MEDS: Acetaminophen 650 MG Suppository PR PRN (16:48)
[2022-10-13] MEDS ORDERED: Sodium Chloride 0.9% 1,000 ML IV SCH (17:45)
[2022-10-13] MEDS: Metoprolol Tartrate 5 MG/5 ML VIAL IVP PRN ×3 (19:25→20:46)
[2022-10-13 20:01] LABS: Hemoglobin 11.9 g/dL (14.0-18.0); Mean Corpuscular HGB CONC 32.6 g/dL (32.0-36.0); Mean Platelet Volume 9.6 fL (7.4-10.4); Platelet Count 94 10x3/uL (130-400); RBC Distribution Width 14.1 % (11.5-14.5); Red Blood Cell (RBC) Count 3.49 mill/uL (4.70-6.10); White Blood Cell (WBC) Count 7.6 10x3/uL (4.8-10.8)
[2022-10-13 20:09] LABS: Anion Gap 26 mmol/L (10-20); BUN (Urea Nitrogen) 91 mg/dL (8.9-20.6); Calc. Creatinine Clearance 7 mL/min (70-130); Calcium 7.8 mg/dL (7.8-10.44); Carbon Dioxide 18 mmol/L (22-29); Chloride 98 mmol/L (98-107); Estimated GFR 5; Glucose 93 mg/dL (70-105); Magnesium 2.2 mg/dL (1.6-2.6); Potassium 4.5 mmol/L (3.5-5.1); Sodium 137 mmol/L (136-145)
[2022-10-13 20:10] LABS: Lactic Acid 5.4 mmol/L (0.5-2.2)
[2022-10-13 20:20] LABS: Band 26 % (5-11); Burr Cells MODERATE= 6-15 cells (100X) (0-1/hpf); Lymphocytes 5 % (21-51); MDiff Complete? YES; Macrocytosis SLIGHT = 6-15 cells (100X) (0-5/hpf); Neutrophil 67 % (42-75); Ovalocytes MODERATE= 6-15 cells (100X) (0-1/hpf); Platelet Morphology Comment Appears Decreased; Polychromasia SLIGHT = 2-3 cells (100X) (0-2/hpf); Reactive Lymphocytes 2 % (0-10)
[2022-10-13] MEDS ORDERED: Lorazepam 2 MG/ML VIAL SLOW IVP PRN ×2 (20:28→21:30)
[2022-10-13] MEDS ORDERED: hydrALAZINE 20 MG/ML VIAL SLOW IVP PRN (20:45)
[2022-10-13] MEDS ORDERED: Labetalol HCl 100 MG/20 ML VIAL SLOW IVP PRN (20:45)
[2022-10-13] MEDS ORDERED: Cefepime 2 GM in Sodium Chloride 0.9% 100 ML IVPB SCH (21:00)
[2022-10-13] MEDS ORDERED: levETIRAcetam in NS 500 MG in Premix Bag 1 BAG IVPB SCH (21:00)
[2022-10-13] MEDS ORDERED: Ventilator Sedation Protocol 1 EACH FS SCH (21:15)
[2022-10-13] MEDS: Propofol 1,000 MG/100 ML VIAL IV PRN (21:21)
[2022-10-13] MEDS: Fentanyl CADD 100 ML IV SCH (21:21)
[2022-10-13] MEDS: Lactated Ringer's 1,000 ML IV SCH (21:29)
[2022-10-13] MEDS ORDERED: Morphine 2 MG/ML VIAL SLOW IVP PRN (21:30)
[2022-10-13] MEDS ORDERED: Fentanyl BOLUS 250 ML IVPB PRN (21:30)
[2022-10-13] MEDS ORDERED: DISCONTINUE PREVIOUS NARCOTIC PAIN MEDICATIONS AND BENZODIAZEPINES FS SCH (21:30)
[2022-10-13] MEDS ORDERED: Propofol BOLUS 1,000 MG/100 ML VIAL IV PRN (21:30)
[2022-10-13 21:32] LABS: Actual Bicarbonate (HCO3a) 16.8 mEq/L (22-28); Base Excess (BEa) -12.2 mEq/L (-2.0 to +3.0); CO2 Tension 51.9 mmHg (35.0-45.0); Calcium, Ionized (arterial) 1.01 mmol/L (1.12-1.30); Carboxyhemoglobin (COHb) 0.6 gm% (0.0-3.0); Hemoglobin (Hb) 12.1 g/dL (14.0-18.0); O2 Tension (PaO2), arterial 92.2 mmHg (80.0-100.0); Potassium - ABG Lab 4.96 mmol/L (3.70-5.30)
[2022-10-13 21:36] LABS: Puncture Site RRA; pH, Arterial 7.13 (7.35-7.45)
[2022-10-13 21:37] LABS: ALV-art Gradient 555.925 mmHg (0-20)
[2022-10-13] MEDS: levETIRAcetam 500 MG/5 ML VIAL SLOW IVP SCH (23:17)
[2022-10-13 23:53] LABS: ALT (SGPT) 29 U/L (8-55); AST (SGOT) 111 U/L (5-34); Albumin 2.3 g/dL (3.5-5.0); Alkaline Phosphatase 58 U/L (40-110); Anion Gap 29 mmol/L (10-20); BUN (Urea Nitrogen) 89 mg/dL (8.9-20.6); Bilirubin, Total 0.9 mg/dL (0.2-1.2); Calc. Creatinine Clearance 7 mL/min (70-130); Calcium 7.6 mg/dL (7.8-10.44); Carbon Dioxide 15 mmol/L (22-29); Chloride 99 mmol/L (98-107); Estimated GFR 5; Globulin 3.7 g/dL (2.4-3.5); Glucose 86 mg/dL (70-105); Potassium 5.3 mmol/L (3.5-5.1); Sodium 138 mmol/L (136-145)
[2022-10-14 03:22] LABS: Hemoglobin 12.2 g/dL (14.0-18.0); Mean Corpuscular HGB CONC 33.1 g/dL (32.0-36.0); RBC Distribution Width 13.9 % (11.5-14.5); Red Blood Cell (RBC) Count 3.49 mill/uL (4.70-6.10); White Blood Cell (WBC) Count 6.7 10x3/uL (4.8-10.8)
[2022-10-14 03:34] LABS: Chloride 98 mmol/L (98-107); Sodium 136 mmol/L (136-145)
[2022-10-14 03:35] LABS: Calcium 7.7 mg/dL (7.8-10.44); Glucose 72 mg/dL (70-105); Triglycerides 221 mg/dL (Less than 150)
[2022-10-14 03:37] LABS: Anion Gap 30 mmol/L (10-20); Carbon Dioxide 14 mmol/L (22-29)
[2022-10-14 03:39] LABS: BUN (Urea Nitrogen) 94 mg/dL (8.9-20.6); Calc. Creatinine Clearance 7 mL/min (70-130); Estimated GFR 5
[2022-10-14 03:40] LABS: Cholesterol 186 mg/dl (< 200 Desired); Potassium 6.1 mmol/L (3.5-5.1)
[2022-10-14 03:41] LABS: Cardiac Risk 4.7 (Less than 4.5); HDL Cholesterol 40 mg/dL (>60 Neg Risk); LDL Cholesterol, Calculated 102 mg/dL
[2022-10-14] MEDS ORDERED: Midazolam In 0.9 % NaCl/PF 100 ML IVPB SCH (03:45)
[2022-10-14] MEDS ORDERED: Sodium Bicarb 50 MEQ/50 ML VIAL ONE (03:53)
[2022-10-14] MEDS ORDERED: Sodium Bicarb 50 MEQ/50 ML VIAL IVP SCH (04:00)
[2022-10-14 04:01] LABS: Actual Bicarbonate (HCO3a) 21.2 mEq/L (22-28); Base Excess (BEa) -2.9 mEq/L (-2.0 to +3.0); CO2 Tension 34.6 mmHg (35.0-45.0); Calcium, Ionized (arterial) 0.96 mmol/L (1.12-1.30); Carboxyhemoglobin (COHb) 0.6 gm% (0.0-3.0); Hemoglobin (Hb) 11.7 g/dL (14.0-18.0); O2 Tension (PaO2), arterial 88.1 mmHg (80.0-100.0); pH, Arterial 7.41 (7.35-7.45)
[2022-10-14 04:02] LABS: Puncture Site LRA
[2022-10-14 04:15] LABS: Band 30 % (5-11); Crenated RBC MODERATE= 6-15 cells (100X) (None Seen); Lymphocytes 5 % (21-51); MDiff Complete? YES; Macrocytosis SLIGHT = 6-15 cells (100X) (0-5/hpf); Mean Platelet Volume 9.5 fL (7.4-10.4); Monocytes 1 % (0-10); Neutrophil 64 % (42-75); Ovalocytes SLIGHT = 2-5 cells (100X) (0-1/hpf); Platelet Count 65 10x3/uL (130-400); Platelet Morphology Comment Appears Decreased; Polychromasia SLIGHT = 2-3 cells (100X) (0-2/hpf)
[2022-10-14] MEDS ORDERED: NOREPINEPHRINE 8 MG/250 ML-D5W 250 ML ONE (05:25)
[2022-10-14 05:39] LABS: Lactic Acid 5.3 mmol/L (0.5-2.2)
[2022-10-14] MEDS ORDERED: NOREPINEPHRINE 8 MG/250 ML-D5W 250 ML IVPB SCH (05:45)
[2022-10-14] MEDS: Norepinephrine 16 MG, Admixture Fee 1 EACH in Dextrose 5% in Water 234 ML IVPB PRN ×2 (06:06→18:05)
[2022-10-14] MEDS: Lactated Ringer's 1,000 ML IV SCH (06:17)
[2022-10-14 06:50] LABS: Anion Gap 22 mmol/L (10-20); BUN (Urea Nitrogen) 94 mg/dL (8.9-20.6); Calc. Creatinine Clearance 7 mL/min (70-130); Calcium 7.5 mg/dL (7.8-10.44); Carbon Dioxide 25 mmol/L (22-29); Chloride 97 mmol/L (98-107); Estimated GFR 5; Glucose 72 mg/dL (70-105); Sodium 138 mmol/L (136-145)
[2022-10-14 06:53] LABS: Potassium 6.4 mmol/L (3.5-5.1)
[2022-10-14 06:57] LABS: Vancomycin, Random 16.3 ug/mL (See Comment)
[2022-10-14] MEDS: Propofol 1,000 MG/100 ML VIAL IV PRN (07:41)
[2022-10-14] MEDS ORDERED: Calcium Gluc 4.6 MEQ/10 ML (100 MG/ML) SLOW IVP ONE (07:56)
[2022-10-14] MEDS ORDERED: Carvedilol 3.125 MG TAB PO SCH (08:00)
[2022-10-14] MEDS ORDERED: CALCIUM GLUC 1 GM/NS 50 ML 1 GM in Premix Bag 1 BAG IVPB SCH (08:15)
[2022-10-14] MEDS ORDERED: Vancomycin 2 GM in Premix Bag 1 BAG IVPB SCH (08:15)
[2022-10-14] MEDS ORDERED: Dextrose 10% in Water 1,000 ML IV SCH (08:45)
[2022-10-14] MEDS ORDERED: FLU VACC QS2022-23(6MO UP)/PF 60 MCG/0.5 ML SYRINGE IM ONE (09:00)
[2022-10-14] MEDS ORDERED: Hydrocortisone Sod Succ/PF 100 mg/2 ml Vial IVP SCH (09:15)
[2022-10-14] MEDS: levETIRAcetam 500 MG/5 ML VIAL SLOW IVP SCH ×2 (09:22→21:26)
[2022-10-14 10:04] LABS: HBSAB Concentration Less than 8.00 mIU/mL; HBSAg Index 0.58 S/CO (0-0.99); Hep B Surf AB Non-Reactive (NonReactive); Hep B Surf Ag Non-Reactive S/CO (NonReactive)
[2022-10-14] MEDS ORDERED: CEFAZOLIN 1 GM in Sodium Chloride 0.9% 100 ML IVPB SCH (14:00)
[2022-10-14] MEDS: STERILE WATER IV SCH (16:07)
[2022-10-14] MEDS: DEXTROSE IV SCH (16:07)
[2022-10-14] MEDS: WATER IV SCH (16:07)
[2022-10-14] MEDS: Hydrocortisone Sod Succ/PF 100 mg/2 ml Vial IVP SCH (16:24)
[2022-10-14] MEDS: Famotidine/PF 20 mg/2ml Vial SLOW IVP SCH (16:24)
[2022-10-14] MEDS ORDERED: Hydrocortisone Sod Succ/PF 500 mg/4 ml Vial SLOW IVP SCH (17:00)
[2022-10-14] MEDS ORDERED: Cefepime 0.5 GM, Admixture Fee 1 EACH in Sodium Chloride 0.9% 100 ML IVPB SCH (17:00)
[2022-10-14] MEDS: Carvedilol 3.125 MG TAB PO SCH (17:07)
[2022-10-14] MEDS ORDERED: VANCOMYCIN IVPB SCH (20:00)
[2022-10-14] MEDS: Acetaminophen 650 MG Suppository PR PRN (22:01)
[2022-10-14] MEDS: Fentanyl CADD 100 ML IV SCH (22:29)
[2022-10-15] MEDS: Hydrocortisone Sod Succ/PF 100 mg/2 ml Vial IVP SCH ×3 (01:07→17:29)
[2022-10-15 04:48] LABS: Mean Corpuscular HGB CONC 30.8 g/dL (32.0-36.0); Mean Corpuscular Hemoglobin 32.9 pg (27.0-31.0); Mean Platelet Volume 11.3 fL (7.4-10.4); Platelet Count 55 10x3/uL (130-400); RBC Distribution Width 13.8 % (11.5-14.5); Red Blood Cell (RBC) Count 3.06 mill/uL (4.70-6.10); White Blood Cell (WBC) Count 7.2 10x3/uL (4.8-10.8)
[2022-10-15 05:20] LABS: ALT (SGPT) 17 U/L (8-55); AST (SGOT) 76 U/L (5-34); Albumin 1.7 g/dL (3.5-5.0); Alkaline Phosphatase 48 U/L (40-110); Anion Gap 15 mmol/L (10-20); BUN (Urea Nitrogen) 53 mg/dL (8.9-20.6); Bilirubin, Total 0.5 mg/dL (0.2-1.2); Calc. Creatinine Clearance 10 mL/min (70-130); Calcium 7.6 mg/dL (7.8-10.44); Carbon Dioxide 29 mmol/L (22-29); Chloride 94 mmol/L (98-107); Estimated GFR 8; Globulin 3.2 g/dL (2.4-3.5); Glucose 167 mg/dL (70-105); Potassium 5.1 mmol/L (3.5-5.1); Protein, Total 4.9 g/dL (6.0-8.3); Sodium 133 mmol/L (136-145)
[2022-10-15] MEDS: Levothyroxine Sodium 125 MCG TAB PO SCH (05:32)
[2022-10-15 05:51] LABS: Band 42 % (5-11); Lymphocytes 5 % (21-51); MDiff Complete? YES; Macrocytosis SLIGHT = 6-15 cells (100X) (0-5/hpf); Neutrophil 53 % (42-75); Platelet Morphology Comment Appears Decreased; Tear Drops SLIGHT = 2-5 cells (100X) (0-1/hpf)
[2022-10-15 07:34] LABS: Actual Bicarbonate (HCO3a) 27.9 mEq/L (22-28); Base Excess (BEa) 6.2 mEq/L (-2.0 to +3.0); CO2 Tension 30.2 mmHg (35.0-45.0); Calcium, Ionized (arterial) 1.05 mmol/L (1.12-1.30); Carboxyhemoglobin (COHb) 0.5 gm% (0.0-3.0); Hemoglobin (Hb) 10.3 g/dL (14.0-18.0); O2 Tension (PaO2), arterial 168.7 mmHg (80.0-100.0); Potassium - ABG Lab 4.95 mmol/L (3.70-5.30); pH, Arterial 7.58 (7.35-7.45)
[2022-10-15 07:54] LABS: Puncture Site RRA
[2022-10-15] MEDS: levETIRAcetam 500 MG/5 ML VIAL SLOW IVP SCH ×2 (08:40→21:28)
[2022-10-15] MEDS: Carvedilol 3.125 MG TAB PO SCH ×2 (08:40→17:30)
[2022-10-15 09:51] LABS: Potassium - ABG Lab 6.23 mmol/L (3.70-5.30)
[2022-10-15] MEDS: Ampicillin/Sulbactam 1.5 GM in Sodium Chloride 0.9% 100 ML IVPB SCH ×2 (09:53→21:28)
[2022-10-15] MEDS: DEXTROSE IV SCH (12:39)
[2022-10-15] MEDS: STERILE WATER IV SCH (12:39)
[2022-10-15] MEDS: WATER IV SCH (12:39)
[2022-10-15] MEDS ORDERED: CEFAZOLIN 1 GM in Sodium Chloride 0.9% 100 ML IVPB SCH ×2 (17:00→18:00)
[2022-10-15] MEDS: Famotidine/PF 20 mg/2ml Vial SLOW IVP SCH (17:30)
[2022-10-16] MEDS: Hydrocortisone Sod Succ/PF 100 mg/2 ml Vial IVP SCH ×3 (01:26→16:34)
[2022-10-16] MEDS: WATER IV SCH (04:33)
[2022-10-16] MEDS: DEXTROSE IV SCH (04:33)
[2022-10-16] MEDS: STERILE WATER IV SCH (04:33)
[2022-10-16 05:19] LABS: Hemoglobin 9.5 g/dL (14.0-18.0); Mean Corpuscular HGB CONC 31.6 g/dL (32.0-36.0); Mean Corpuscular Hemoglobin 33.1 pg (27.0-31.0); Mean Platelet Volume 14.2 fL (7.4-10.4); Platelet Count 54 10x3/uL (130-400); RBC Distribution Width 13.8 % (11.5-14.5); Red Blood Cell (RBC) Count 2.88 mill/uL (4.70-6.10); White Blood Cell (WBC) Count 8.3 10x3/uL (4.8-10.8)
[2022-10-16 05:31] LABS: ALT (SGPT) 9 U/L (8-55); AST (SGOT) 58 U/L (5-34); Albumin 1.7 g/dL (3.5-5.0); Alkaline Phosphatase 56 U/L (40-110); Anion Gap 16 mmol/L (10-20); BUN (Urea Nitrogen) 73 mg/dL (8.9-20.6); Bilirubin, Total 0.4 mg/dL (0.2-1.2); Calc. Creatinine Clearance 9 mL/min (70-130); Calcium 7.9 mg/dL (7.8-10.44); Carbon Dioxide 28 mmol/L (22-29); Chloride 91 mmol/L (98-107); Estimated GFR 7; Globulin 3.4 g/dL (2.4-3.5); Glucose 165 mg/dL (70-105); Protein, Total 5.1 g/dL (6.0-8.3); Sodium 130 mmol/L (136-145)
[2022-10-16] MEDS: Levothyroxine Sodium 125 MCG TAB PO SCH (06:21)
[2022-10-16 06:24] LABS: Band 5 % (5-11); Lymphocytes 3 % (21-51); MDiff Complete? YES; Monocytes 6 % (0-10); Neutrophil 86 % (42-75); Ovalocytes MODERATE= 6-15 cells (100X) (0-1/hpf); Platelet Morphology Comment Appears Decreased; Schistocytes SLIGHT = 2-5 cells (100X) (0-1/hpf); Tear Drops SLIGHT = 2-5 cells (100X) (0-1/hpf)
[2022-10-16] MEDS ORDERED: Fentanyl CADD 100 ML ONE (08:31)
[2022-10-16] MEDS ORDERED: Vecuronium 10 MG VIAL ONE (08:51)
[2022-10-16] MEDS ORDERED: Vecuronium 10 MG VIAL IVP SCH (09:45)
[2022-10-16] MEDS: Carvedilol 3.125 MG TAB PO SCH ×2 (09:49→16:33)
[2022-10-16] MEDS: levETIRAcetam 500 MG/5 ML VIAL SLOW IVP SCH ×2 (09:49→21:16)
[2022-10-16] MEDS ORDERED: cefTRIAXone\\ROCEPHIN 2 GM in Sodium Chloride 0.9% 100 ML IVPB SCH ×2 (10:00→15:00)
[2022-10-16] MEDS ORDERED: Albumin 25% 25 GM/100 ML BOT IVPB PRN ×2 (10:41→11:04)
[2022-10-16] MEDS: Oxacillin 2 GM in Sodium Chloride 0.9% 100 ML IVPB SCH ×5 (14:34→23:30)
[2022-10-16] MEDS: Famotidine/PF 20 mg/2ml Vial SLOW IVP SCH (16:34)
[2022-10-16] MEDS ORDERED: Rifampin 600 MG in Sodium Chloride 0.9% 100 ML IVPB SCH (23:00)
[2022-10-16] MEDS ORDERED: Gentamicin Sulfate 120 MG in Premix Bag 1 BAG IVPB SCH (23:59)
[2022-10-17] MEDS: Hydrocortisone Sod Succ/PF 100 mg/2 ml Vial IVP SCH ×3 (01:28→16:41)
[2022-10-17] MEDS: Oxacillin 2 GM in Sodium Chloride 0.9% 100 ML IVPB SCH ×6 (03:11→23:29)
[2022-10-17 04:48] LABS: Hemoglobin 9.2 g/dL (14.0-18.0); Platelet Count 46 10x3/uL (130-400)
[2022-10-17 04:57] LABS: ALT (SGPT) Less than 7 U/L (8-55); AST (SGOT) 42 U/L (5-34); Albumin 2.1 g/dL (3.5-5.0); Alkaline Phosphatase 48 U/L (40-110); Anion Gap 15 mmol/L (10-20); BUN (Urea Nitrogen) 49 mg/dL (8.9-20.6); Bilirubin, Total 0.6 mg/dL (0.2-1.2); Calc. Creatinine Clearance 13 mL/min (70-130); Carbon Dioxide 29 mmol/L (22-29); Chloride 94 mmol/L (98-107); Estimated GFR 10; Globulin 3.4 g/dL (2.4-3.5); Glucose 158 mg/dL (70-105); Potassium 4.6 mmol/L (3.5-5.1); Protein, Total 5.5 g/dL (6.0-8.3); Sodium 133 mmol/L (136-145)
[2022-10-17] MEDS: Levothyroxine Sodium 125 MCG TAB PO SCH (05:51)
[2022-10-17] MEDS: STERILE WATER IV SCH (06:31)
[2022-10-17] MEDS: DEXTROSE IV SCH (06:31)
[2022-10-17] MEDS: WATER IV SCH (06:31)
[2022-10-17] MEDS: Carvedilol 3.125 MG TAB PO SCH ×2 (09:09→16:41)
[2022-10-17] MEDS: levETIRAcetam 500 MG/5 ML VIAL SLOW IVP SCH ×2 (09:09→21:12)
[2022-10-17] MEDS: Fentanyl CADD 100 ML IV SCH (10:26)
[2022-10-17] MEDS: Pantoprazole 40 MG VIAL IVP SCH (10:30)
[2022-10-17] MEDS ORDERED: Fentanyl CADD 0 ML ONE (11:58)
[2022-10-17] MEDS ORDERED: Fentanyl CADD 100 ML ONE (12:00)
[2022-10-17] MEDS: Rifampin 600 MG in Sodium Chloride 0.9% 100 ML IVPB SCH (21:12)
[2022-10-18] MEDS: Oxacillin 2 GM in Sodium Chloride 0.9% 100 ML IVPB SCH ×6 (03:12→22:30)
[2022-10-18] MEDS: WATER IV SCH ×2 (03:13→22:30)
[2022-10-18] MEDS: DEXTROSE IV SCH ×2 (03:13→22:30)
[2022-10-18] MEDS: STERILE WATER IV SCH ×2 (03:13→22:30)
[2022-10-18 03:53] LABS: Hemoglobin 9.8 g/dL (14.0-18.0); Mean Corpuscular HGB CONC 31.9 g/dL (32.0-36.0); Mean Corpuscular Hemoglobin 33.4 pg (27.0-31.0); RBC Distribution Width 13.4 % (11.5-14.5); Red Blood Cell (RBC) Count 2.91 mill/uL (4.70-6.10); White Blood Cell (WBC) Count 6.8 10x3/uL (4.8-10.8)
[2022-10-18 04:11] LABS: ALT (SGPT) Less than 7 U/L (8-55); AST (SGOT) 27 U/L (5-34); Albumin 1.8 g/dL (3.5-5.0); Alkaline Phosphatase 55 U/L (40-110); Anion Gap 17 mmol/L (10-20); BUN (Urea Nitrogen) 72 mg/dL (8.9-20.6); Bilirubin, Total 0.5 mg/dL (0.2-1.2); Calc. Creatinine Clearance 11 mL/min (70-130); Calcium 7.8 mg/dL (7.8-10.44); Carbon Dioxide 27 mmol/L (22-29); Chloride 91 mmol/L (98-107); Estimated GFR 8; Globulin 3.2 g/dL (2.4-3.5); Glucose 184 mg/dL (70-105); Potassium 4.3 mmol/L (3.5-5.1); Sodium 131 mmol/L (136-145)
[2022-10-18 04:18] LABS: Band 1 % (5-11); Hypochromia SLIGHT = 6-15 cells (100X) (0-5/hpf); Large Platelets SLIGHT; Lymphocytes 2 % (21-51); MDiff Complete? YES; Mean Platelet Volume 12.2 fL (7.4-10.4); Monocytes 4 % (0-10); Neutrophil 93 % (42-75); Ovalocytes SLIGHT = 2-5 cells (100X) (0-1/hpf); Platelet Count 39 10x3/uL (130-400); Platelet Morphology Comment Appears Decreased; Polychromasia SLIGHT = 2-3 cells (100X) (0-2/hpf); Tear Drops SLIGHT = 2-5 cells (100X) (0-1/hpf)
[2022-10-18] MEDS: Levothyroxine Sodium 125 MCG TAB PO SCH (06:39)
[2022-10-18] MEDS: Carvedilol 3.125 MG TAB PO SCH ×2 (08:08→15:21)
[2022-10-18] MEDS: Hydrocortisone Sod Succ/PF 100 mg/2 ml Vial IVP SCH ×3 (08:09→20:54)
[2022-10-18] MEDS: Pantoprazole 40 MG VIAL IVP SCH (08:09)
[2022-10-18] MEDS: levETIRAcetam 500 MG/5 ML VIAL SLOW IVP SCH ×2 (08:09→20:55)
[2022-10-18] MEDS ORDERED: Fentanyl CADD 100 ML ONE (08:55)
[2022-10-18] MEDS: Fentanyl CADD 100 ML IV SCH (08:58)
[2022-10-18] MEDS: Albumin 25% 25 GM/100 ML BOT IVPB SCH ×2 (11:07→12:13)
[2022-10-18] MEDS ORDERED: Albumin 25% 25 GM/100 ML BOT IVPB SCH (12:15)
[2022-10-18] MEDS: Rifampin 600 MG in Sodium Chloride 0.9% 100 ML IVPB SCH (20:55)
[2022-10-18] MEDS: Senokot S 8.6-50 MG TAB PER TUBE SCH (20:55)
[2022-10-19] MEDS: Oxacillin 2 GM in Sodium Chloride 0.9% 100 ML IVPB SCH ×6 (02:37→23:33)
[2022-10-19] MEDS: Levothyroxine Sodium 125 MCG TAB PO SCH (06:05)
[2022-10-19 06:45] LABS: Hemoglobin 9.6 g/dL (14.0-18.0); Mean Corpuscular HGB CONC 31.2 g/dL (32.0-36.0); Mean Corpuscular Hemoglobin 32.7 pg (27.0-31.0); RBC Distribution Width 13.3 % (11.5-14.5); Red Blood Cell (RBC) Count 2.95 mill/uL (4.70-6.10)
[2022-10-19 06:49] LABS: ALT (SGPT) Less than 7 U/L (8-55); AST (SGOT) 20 U/L (5-34); Albumin 2.4 g/dL (3.5-5.0); Alkaline Phosphatase 48 U/L (40-110); Anion Gap 14 mmol/L (10-20); BUN (Urea Nitrogen) 54 mg/dL (8.9-20.6); Bilirubin, Total 0.5 mg/dL (0.2-1.2); Calc. Creatinine Clearance 17 mL/min (70-130); Calcium 7.7 mg/dL (7.8-10.44); Carbon Dioxide 25 mmol/L (22-29); Chloride 97 mmol/L (98-107); Estimated GFR 12; Globulin 2.7 g/dL (2.4-3.5); Glucose 196 mg/dL (70-105); Potassium 3.9 mmol/L (3.5-5.1); Protein, Total 5.1 g/dL (6.0-8.3); Sodium 132 mmol/L (136-145)
[2022-10-19 07:28] LABS: Actual Bicarbonate (HCO3a) 27.4 mEq/L (22-28); Base Excess (BEa) 3.5 mEq/L (-2.0 to +3.0); CO2 Tension 38.4 mmHg (35.0-45.0); Calcium, Ionized (arterial) 1.04 mmol/L (1.12-1.30); Carboxyhemoglobin (COHb) 0.6 gm% (0.0-3.0); Hemoglobin (Hb) 7.9 g/dL (14.0-18.0); O2 Tension (PaO2), arterial 114.4 mmHg (80.0-100.0); Potassium - ABG Lab 3.74 mmol/L (3.70-5.30); pH, Arterial 7.47 (7.35-7.45)
[2022-10-19 08:15] LABS: Puncture Site LRA
[2022-10-19] MEDS: Hydrocortisone Sod Succ/PF 100 mg/2 ml Vial IVP SCH ×2 (09:19→21:39)
[2022-10-19] MEDS: Pantoprazole 40 MG VIAL IVP SCH (09:19)
[2022-10-19] MEDS: Carvedilol 3.125 MG TAB PO SCH ×2 (09:19→17:53)
[2022-10-19] MEDS: Senokot S 8.6-50 MG TAB PER TUBE SCH ×2 (09:19→21:40)
[2022-10-19] MEDS: levETIRAcetam 500 MG/5 ML VIAL SLOW IVP SCH ×2 (09:20→21:39)
[2022-10-19 09:22] LABS: Eosinophils 3 % (0-10); Lymphocytes 4 % (21-51); MDiff Complete? YES; Mean Platelet Volume 11.7 fL (7.4-10.4); Monocytes 12 % (0-10); Neutrophil 81 % (42-75); Platelet Count 46 10x3/uL (130-400); Platelet Morphology Comment Appears Decreased; Polychromasia SLIGHT = 2-3 cells (100X) (0-2/hpf)
[2022-10-19] MEDS: WATER IV SCH (18:20)
[2022-10-19] MEDS: STERILE WATER IV SCH (18:20)
[2022-10-19] MEDS: DEXTROSE IV SCH (18:20)
[2022-10-19] MEDS: Rifampin 600 MG in Sodium Chloride 0.9% 100 ML IVPB SCH (21:39)
[2022-10-20] MEDS: Oxacillin 2 GM in Sodium Chloride 0.9% 100 ML IVPB SCH ×6 (02:20→23:40)
[2022-10-20 05:04] LABS: Band 11 % (5-11); Hypochromia SLIGHT = 6-15 cells (100X) (0-5/hpf); Lymphocytes 8 % (21-51); MDiff Complete? YES; Mean Corpuscular HGB CONC 33.4 g/dL (32.0-36.0); Mean Corpuscular Hemoglobin 33.7 pg (27.0-31.0); Mean Platelet Volume 11.9 fL (7.4-10.4); Monocytes 10 % (0-10); Neutrophil 71 % (42-75); Platelet Count 58 10x3/uL (130-400); Platelet Morphology Comment Appears Decreased; RBC Distribution Width 13.5 % (11.5-14.5); Red Blood Cell (RBC) Count 3.55 mill/uL (4.70-6.10); White Blood Cell (WBC) Count 9.1 10x3/uL (4.8-10.8)
[2022-10-20] MEDS: Levothyroxine Sodium 125 MCG TAB PO SCH (05:17)
[2022-10-20 05:25] LABS: ALT (SGPT) Less than 7 U/L (8-55); AST (SGOT) 24 U/L (5-34); Albumin 2.5 g/dL (3.5-5.0); Alkaline Phosphatase 60 U/L (40-110); Anion Gap 17 mmol/L (10-20); BUN (Urea Nitrogen) 71 mg/dL (8.9-20.6); Bilirubin, Total 0.9 mg/dL (0.2-1.2); Calc. Creatinine Clearance 13 mL/min (70-130); Carbon Dioxide 23 mmol/L (22-29); Chloride 95 mmol/L (98-107); Estimated GFR 9; Globulin 3.5 g/dL (2.4-3.5); Glucose 185 mg/dL (70-105); Potassium 3.8 mmol/L (3.5-5.1); Sodium 131 mmol/L (136-145)
[2022-10-20] MEDS: Carvedilol 3.125 MG TAB PO SCH ×2 (09:05→16:18)
[2022-10-20] MEDS: Senokot S 8.6-50 MG TAB PER TUBE SCH ×2 (09:05→21:49)
[2022-10-20] MEDS: levETIRAcetam 500 MG/5 ML VIAL SLOW IVP SCH ×2 (09:29→21:49)
[2022-10-20] MEDS: Pantoprazole 40 MG VIAL IVP SCH (09:29)
[2022-10-20] MEDS: Hydrocortisone Sod Succ/PF 100 mg/2 ml Vial IVP SCH ×2 (09:29→21:49)
[2022-10-20 13:43] LABS: Actual Bicarbonate (HCO3v) 25 mEq/L (22-28); Base Excess 1.7 mEq/L (-2.0 to +3.0); Calcium, Ionized (venous) 1.04 mmol/L (1.16-1.32); Chloride (VBG) 92 mmol/L (98-106); Hemoglobin (Hb) 12.3 g/dL (13.1-17.2); Potassium (VBG) 3.88 mmol/L (3.70-5.30); pH (venous) 7.47 (7.32-7.43)
[2022-10-20] MEDS: Albumin 25% 25 GM/100 ML BOT IVPB PRN ×2 (19:00→20:00)
[2022-10-20] MEDS ORDERED: DEXTROSE IV SCH (21:01)
[2022-10-20] MEDS ORDERED: WATER IV SCH (21:01)
[2022-10-20] MEDS ORDERED: STERILE WATER IV SCH (21:01)
[2022-10-20] MEDS: Rifampin 600 MG in Sodium Chloride 0.9% 100 ML IVPB SCH (21:49)
[2022-10-21] MEDS: Oxacillin 2 GM in Sodium Chloride 0.9% 100 ML IVPB SCH ×5 (02:17→22:16)
[2022-10-21] MEDS: Levothyroxine Sodium 125 MCG TAB PO SCH (06:14)
[2022-10-21] MEDS: Carvedilol 3.125 MG TAB PO SCH ×2 (08:21→16:03)
[2022-10-21] MEDS: Senokot S 8.6-50 MG TAB PER TUBE SCH ×2 (08:21→20:20)
[2022-10-21] MEDS: levETIRAcetam 500 MG/5 ML VIAL SLOW IVP SCH (08:21)
[2022-10-21] MEDS: Hydrocortisone Sod Succ/PF 100 mg/2 ml Vial IVP SCH (08:22)
[2022-10-21] MEDS: Pantoprazole 40 MG VIAL IVP SCH (08:22)
[2022-10-21 08:48] LABS: Hemoglobin 12.4 g/dL (14.0-18.0); Mean Corpuscular HGB CONC 31.2 g/dL (32.0-36.0); Mean Corpuscular Hemoglobin 31.6 pg (27.0-31.0); Mean Platelet Volume 10.9 fL (7.4-10.4); Platelet Count 72 10x3/uL (130-400); RBC Distribution Width 13.7 % (11.5-14.5); Red Blood Cell (RBC) Count 3.91 mill/uL (4.70-6.10); White Blood Cell (WBC) Count 10.2 10x3/uL (4.8-10.8)
[2022-10-21 09:00] LABS: ALT (SGPT) Less than 7 U/L (8-55); AST (SGOT) 35 U/L (5-34); Albumin 3.1 g/dL (3.5-5.0); Alkaline Phosphatase 65 U/L (40-110); Anion Gap 18 mmol/L (10-20); BUN (Urea Nitrogen) 54 mg/dL (8.9-20.6); Bilirubin, Total 1.2 mg/dL (0.2-1.2); Calc. Creatinine Clearance 15 mL/min (70-130); Calcium 8.7 mg/dL (7.8-10.44); Carbon Dioxide 24 mmol/L (22-29); Chloride 96 mmol/L (98-107); Estimated GFR 11; Globulin 3.8 g/dL (2.4-3.5); Glucose 75 mg/dL (70-105); Potassium 3.9 mmol/L (3.5-5.1); Protein, Total 6.9 g/dL (6.0-8.3); Sodium 134 mmol/L (136-145)
[2022-10-21 10:54] LABS: Band 7 % (5-11); Lymphocytes 9 % (21-51); MDiff Complete? YES; Metamyelocyte 1 % (0-0); Monocytes 1 % (0-10); Neutrophil 82 % (42-75); Ovalocytes SLIGHT = 2-5 cells (100X) (0-1/hpf); Platelet Morphology Comment Appears Decreased; Polychromasia SLIGHT = 2-3 cells (100X) (0-2/hpf)
[2022-10-21] MEDS ORDERED: Albumin 25% 25 GM/100 ML BOT IVPB SCH (18:15)
[2022-10-22] MEDS: Oxacillin 2 GM in Sodium Chloride 0.9% 100 ML IVPB SCH ×7 (01:31→22:53)
[2022-10-22] MEDS: Levothyroxine Sodium 125 MCG TAB PO SCH (05:49)
[2022-10-22 08:26] LABS: #Lymphocytes 0.5 thou/uL (1.20-3.40); #Monocytes 0.2 thou/uL (0.11-0.59); #Neutrophils 7.3 thou/uL (1.40-6.50); %Lymphocytes 6.1 % (21.0-51.0); %Monocytes 2.5 % (0.0-10.0); %Neutrophils 91.3 % (42.0-75.0); Hemoglobin 10.3 g/dL (14.0-18.0); Mean Corpuscular HGB CONC 32.1 g/dL (32.0-36.0); Mean Corpuscular Hemoglobin 32.7 pg (27.0-31.0); Mean Platelet Volume 10.9 fL (7.4-10.4); Platelet Count 64 10x3/uL (130-400); RBC Distribution Width 13.6 % (11.5-14.5); Red Blood Cell (RBC) Count 3.15 mill/uL (4.70-6.10)
[2022-10-22] MEDS: Hydrocortisone Sod Succ/PF 100 mg/2 ml Vial IVP SCH (09:08)
[2022-10-22] MEDS: Carvedilol 3.125 MG TAB PO SCH ×2 (09:09→17:20)
[2022-10-22] MEDS: Pantoprazole 40 MG VIAL IVP SCH (09:09)
[2022-10-22] MEDS: Senokot S 8.6-50 MG TAB PER TUBE SCH ×2 (09:09→22:53)
[2022-10-22 11:15] LABS: ALT (SGPT) 8 U/L (8-55); AST (SGOT) 52 U/L (5-34); Albumin 2.4 g/dL (3.5-5.0); Alkaline Phosphatase 63 U/L (40-110); Anion Gap 16 mmol/L (10-20); BUN (Urea Nitrogen) 39 mg/dL (8.9-20.6); Bilirubin, Total 0.6 mg/dL (0.2-1.2); Calc. Creatinine Clearance 19 mL/min (70-130); Carbon Dioxide 26 mmol/L (22-29); Chloride 98 mmol/L (98-107); Estimated GFR 14; Globulin 3.3 g/dL (2.4-3.5); Glucose 93 mg/dL (70-105); Potassium 3.8 mmol/L (3.5-5.1); Protein, Total 5.7 g/dL (6.0-8.3); Sodium 136 mmol/L (136-145)
[2022-10-22] MEDS ORDERED: Phenylephrine 10 MG/ML VIAL ONE (11:31)
[2022-10-23] MEDS ORDERED: Acetaminophen 650 MG/20.3 ML UDCUP PO PRN (00:06)
[2022-10-23] MEDS: Oxacillin 2 GM in Sodium Chloride 0.9% 100 ML IVPB SCH ×4 (02:46→15:40)
[2022-10-23 04:30] LABS: ALT (SGPT) 7 U/L (8-55); AST (SGOT) 45 U/L (5-34); Albumin 2.2 g/dL (3.5-5.0); Alkaline Phosphatase 64 U/L (40-110); Anion Gap 16 mmol/L (10-20); BUN (Urea Nitrogen) 57 mg/dL (8.9-20.6); Bilirubin, Total 0.5 mg/dL (0.2-1.2); Calc. Creatinine Clearance 14 mL/min (70-130); Calcium 7.8 mg/dL (7.8-10.44); Carbon Dioxide 26 mmol/L (22-29); Chloride 96 mmol/L (98-107); Estimated GFR 10; Globulin 3.3 g/dL (2.4-3.5); Glucose 116 mg/dL (70-105); Potassium 3.9 mmol/L (3.5-5.1); Protein, Total 5.5 g/dL (6.0-8.3); Sodium 134 mmol/L (136-145)
[2022-10-23] MEDS: Levothyroxine Sodium 125 MCG TAB PO SCH (05:54)
[2022-10-23] MEDS: Hydrocortisone Sod Succ/PF 100 mg/2 ml Vial IVP SCH (08:22)
[2022-10-23] MEDS: Pantoprazole 40 MG VIAL IVP SCH (08:23)
[2022-10-23] MEDS: Senokot S 8.6-50 MG TAB PER TUBE SCH ×2 (08:23→20:45)
[2022-10-23] MEDS: Carvedilol 3.125 MG TAB PO SCH ×2 (08:23→17:36)
[2022-10-23] MEDS: Acetaminophen 650 MG/20.3 ML UDCUP PO PRN (20:42)
[2022-10-24] MEDS: Oxacillin 2 GM in Sodium Chloride 0.9% 100 ML IVPB SCH ×8 (00:32→23:19)
[2022-10-24 04:22] LABS: ALT (SGPT) 10 U/L (8-55); AST (SGOT) 61 U/L (5-34); Albumin 2.2 g/dL (3.5-5.0); Alkaline Phosphatase 66 U/L (40-110); Anion Gap 14 mmol/L (10-20); BUN (Urea Nitrogen) 30 mg/dL (8.9-20.6); Bilirubin, Total 0.6 mg/dL (0.2-1.2); Calc. Creatinine Clearance 22 mL/min (70-130); Calcium 7.7 mg/dL (7.8-10.44); Carbon Dioxide 27 mmol/L (22-29); Chloride 97 mmol/L (98-107); Estimated GFR 17; Globulin 3.6 g/dL (2.4-3.5); Glucose 154 mg/dL (70-105); Potassium 3.8 mmol/L (3.5-5.1); Protein, Total 5.8 g/dL (6.0-8.3); Sodium 134 mmol/L (136-145)
[2022-10-24] MEDS: Acetaminophen 650 MG/20.3 ML UDCUP PO PRN (04:28)
[2022-10-24] MEDS: Levothyroxine Sodium 125 MCG TAB PO SCH (05:52)
[2022-10-24] MEDS: Carvedilol 3.125 MG TAB PO SCH ×3 (08:59→17:00)
[2022-10-24] MEDS: Senokot S 8.6-50 MG TAB PER TUBE SCH ×2 (09:57→21:32)
[2022-10-24] MEDS: Pantoprazole 40 MG VIAL IVP SCH (09:57)
[2022-10-24] MEDS: Hydrocortisone Sod Succ/PF 100 mg/2 ml Vial IVP SCH (09:57)
[2022-10-25] MEDS: Acetaminophen 650 MG/20.3 ML UDCUP PO PRN ×3 (00:53→21:53)
[2022-10-25] MEDS: Oxacillin 2 GM in Sodium Chloride 0.9% 100 ML IVPB SCH ×6 (03:56→21:21)
[2022-10-25] MEDS ORDERED: Bupivacaine HCl 0.5%/Epinephrine 1:200,000/PF 30 ml Vial ONE (07:40)
[2022-10-25] MEDS ORDERED: Heparin 5,000 UNITS/ML VIAL ONE ×2 (07:40→09:51)
[2022-10-25] MEDS ORDERED: Midazolam HCl 2 mg/2 ml Vial ONE (07:43)
[2022-10-25] MEDS ORDERED: fentaNYL PF 100 MCG/2 ML SYRINGE ONE (07:43)
[2022-10-25] MEDS ORDERED: Phenylephrine 10 MG/ML VIAL ONE ×2 (07:44→08:10)
[2022-10-25] MEDS ORDERED: Norepinephrine 4 MG/4 ML VIAL ONE (07:44)
[2022-10-25] MEDS ORDERED: Lidocaine 1% PF 5 ML VIAL ONE (08:10)
[2022-10-25] MEDS ORDERED: Ondansetron PF 4 MG/2 ML Vial ONE (08:10)
[2022-10-25] MEDS ORDERED: Rocuronium Bromide 10 MG/ML (10ML VIAL) ONE (08:10)
[2022-10-25] MEDS ORDERED: GLYCOPYRROLATE/PF 0.2 MG/ML VIAL ONE (08:10)
[2022-10-25] MEDS ORDERED: NEOSTIGMINE 3 MG/3 ML SYR 3 MG/3 ML SYRINGE ONE (08:10)
[2022-10-25] MEDS: Levothyroxine Sodium 125 MCG TAB PO SCH (08:21)
[2022-10-25] MEDS ORDERED: Ondansetron HCl/PF 4 MG/2 ML Vial IVP PRN (09:26)
[2022-10-25] MEDS ORDERED: Morphine Sulfate 2 MG/ML SYRINGE SLOW IVP PRN (09:26)
[2022-10-25] MEDS ORDERED: Promethazine HCl 25 MG/ML VIAL IM PRN (09:26)
[2022-10-25] MEDS: Carvedilol 3.125 MG TAB PO SCH ×2 (09:27→16:46)
[2022-10-25] MEDS: Pantoprazole 40 MG VIAL IVP SCH (09:27)
[2022-10-25] MEDS: Senokot S 8.6-50 MG TAB PER TUBE SCH ×2 (09:28→21:22)
[2022-10-25] MEDS ORDERED: fentaNYL 50 mcg/mL 1 mL Vial ONE (09:33)
[2022-10-25] MEDS: Albumin 25% 25 GM/100 ML BOT IVPB PRN ×2 (16:39→17:15)
[2022-10-25 23:01] LABS: #Lymphocytes 0.6 thou/uL (1.20-3.40); #Monocytes 0.4 thou/uL (0.11-0.59); #Neutrophils 6.6 thou/uL (1.40-6.50); %Basophils 0.2 % (0.0-1.0); %Eosinophils 0.2 % (0.0-10.0); %Lymphocytes 8.2 % (21.0-51.0); %Monocytes 5.5 % (0.0-10.0); Hemoglobin 6.7 g/dL (14.0-18.0); Mean Corpuscular HGB CONC 33.6 g/dL (32.0-36.0); Mean Corpuscular Hemoglobin 33.2 pg (27.0-31.0); Mean Corpuscular Volume 98.8 fl (78.0-98.0); Mean Platelet Volume 9.7 fL (7.4-10.4); Platelet Count 67 10x3/uL (130-400); Red Blood Cell (RBC) Count 2.02 mill/uL (4.70-6.10); White Blood Cell (WBC) Count 7.7 10x3/uL (4.8-10.8)
[2022-10-26] MEDS: Dextrose 5%-Lactated Ringers 1,000 ML IV SCH ×2 (00:20→13:43)
[2022-10-26] MEDS: Oxacillin 2 GM in Sodium Chloride 0.9% 100 ML IVPB SCH ×6 (01:19→20:28)
[2022-10-26] MEDS: Levothyroxine Sodium 125 MCG TAB PO SCH (06:20)
[2022-10-26 08:11] LABS: Hemoglobin 8.5 g/dL (14.0-18.0)
[2022-10-26 08:12] LABS: White Blood Cell (WBC) Count 8.1 10x3/uL (4.8-10.8)
[2022-10-26 08:13] LABS: Hemoglobin 8.5 g/dL (14.0-18.0); Mean Corpuscular Hemoglobin 31.9 pg (27.0-31.0); Mean Corpuscular Volume 96.3 fl (78.0-98.0); Red Blood Cell (RBC) Count 2.68 mill/uL (4.70-6.10)
[2022-10-26 08:14] LABS: Mean Corpuscular HGB CONC 33.1 g/dL (32.0-36.0); Mean Platelet Volume 9.8 fL (7.4-10.4); Platelet Count 66 10x3/uL (130-400)
[2022-10-26 08:15] LABS: %Eosinophils 0.1 % (0.0-10.0); %Lymphocytes 7.6 % (21.0-51.0); %Monocytes 6.2 % (0.0-10.0); %Neutrophils 85.6 % (42.0-75.0)
[2022-10-26 08:16] LABS: #Lymphocytes 0.6 thou/uL (1.20-3.40); #Monocytes 0.5 thou/uL (0.11-0.59); #Neutrophils 6.9 thou/uL (1.40-6.50); %Basophils 0.4 % (0.0-1.0)
[2022-10-26 08:17] LABS: Calcium 7.7 mg/dL (7.8-10.44); Glucose 89 mg/dL (70-105); Sodium 137 mmol/L (136-145)
[2022-10-26 08:39] LABS: Anion Gap 12 mmol/L (10-20); Carbon Dioxide 27 mmol/L (22-29); Chloride 102 mmol/L (98-107); Potassium 4.2 mmol/L (3.5-5.1)
[2022-10-26 08:40] LABS: BUN (Urea Nitrogen) 37 mg/dL (8.9-20.6); Calc. Creatinine Clearance 21 mL/min (70-130); Estimated GFR 16
[2022-10-26] MEDS: Bacitracin 1 PK TOP SCH ×3 (09:06→20:28)
[2022-10-26] MEDS: Senokot S 8.6-50 MG TAB PER TUBE SCH ×2 (09:06→20:28)
[2022-10-26] MEDS: Pantoprazole 40 MG VIAL IVP SCH (09:06)
[2022-10-26] MEDS: Carvedilol 3.125 MG TAB PO SCH ×2 (09:06→16:48)
[2022-10-26] MEDS: Acetaminophen 650 MG/20.3 ML UDCUP PO PRN ×2 (09:20→20:27)
[2022-10-27] MEDS: Oxacillin 2 GM in Sodium Chloride 0.9% 100 ML IVPB SCH ×6 (01:28→21:20)
[2022-10-27 04:25] LABS: #Lymphocytes 0.6 thou/uL (1.20-3.40); #Monocytes 0.3 thou/uL (0.11-0.59); #Neutrophils 6.3 thou/uL (1.40-6.50); %Basophils 0.1 % (0.0-1.0); %Eosinophils 0.2 % (0.0-10.0); %Lymphocytes 8.5 % (21.0-51.0); %Monocytes 4.6 % (0.0-10.0); %Neutrophils 86.5 % (42.0-75.0); Hemoglobin 7.8 g/dL (14.0-18.0); Mean Corpuscular HGB CONC 33.7 g/dL (32.0-36.0); Mean Corpuscular Hemoglobin 32.8 pg (27.0-31.0); Mean Platelet Volume 9.8 fL (7.4-10.4); Platelet Count 70 10x3/uL (130-400); RBC Distribution Width 14.7 % (11.5-14.5); Red Blood Cell (RBC) Count 2.38 mill/uL (4.70-6.10); White Blood Cell (WBC) Count 7.3 10x3/uL (4.8-10.8)
[2022-10-27 04:41] LABS: Anion Gap 13 mmol/L (10-20); BUN (Urea Nitrogen) 53 mg/dL (8.9-20.6); Calc. Creatinine Clearance 16 mL/min (70-130); Calcium 7.7 mg/dL (7.8-10.44); Carbon Dioxide 26 mmol/L (22-29); Chloride 104 mmol/L (98-107); Estimated GFR 11; Glucose 84 mg/dL (70-105); Potassium 4.7 mmol/L (3.5-5.1); Sodium 138 mmol/L (136-145)
[2022-10-27] MEDS: Dextrose 5%-Lactated Ringers 1,000 ML IV SCH (05:33)
[2022-10-27] MEDS: Levothyroxine Sodium 125 MCG TAB PO SCH (05:33)
[2022-10-27] MEDS ORDERED: Phenylephrine 10 MG/ML VIAL ONE (09:36)
[2022-10-27] MEDS: Pantoprazole 40 MG VIAL IVP SCH (09:40)
[2022-10-27] MEDS: Bacitracin 1 PK TOP SCH ×3 (09:40→21:21)
[2022-10-27] MEDS: Carvedilol 3.125 MG TAB PO SCH ×2 (09:40→16:27)
[2022-10-27] MEDS: Senokot S 8.6-50 MG TAB PER TUBE SCH ×2 (09:40→21:21)
[2022-10-28] MEDS: Oxacillin 2 GM in Sodium Chloride 0.9% 100 ML IVPB SCH ×6 (00:16→20:54)
[2022-10-28] MEDS: Acetaminophen 650 MG/20.3 ML UDCUP PO PRN ×2 (00:16→20:53)
[2022-10-28] MEDS: Levothyroxine Sodium 125 MCG TAB PO SCH (05:02)
[2022-10-28] MEDS: Dextrose 5%-Lactated Ringers 1,000 ML IV SCH (05:55)
[2022-10-28 06:05] LABS: #Lymphocytes 0.9 thou/uL (1.20-3.40); #Monocytes 0.2 thou/uL (0.11-0.59); #Neutrophils 4.2 thou/uL (1.40-6.50); %Basophils 0.4 % (0.0-1.0); %Eosinophils 0.3 % (0.0-10.0); %Lymphocytes 16.7 % (21.0-51.0); %Monocytes 3.8 % (0.0-10.0); %Neutrophils 78.7 % (42.0-75.0); Mean Corpuscular HGB CONC 33.7 g/dL (32.0-36.0); Mean Corpuscular Volume 97.9 fl (78.0-98.0); Mean Platelet Volume 9.8 fL (7.4-10.4); Platelet Count 81 10x3/uL (130-400); RBC Distribution Width 14.5 % (11.5-14.5); Red Blood Cell (RBC) Count 2.44 mill/uL (4.70-6.10); White Blood Cell (WBC) Count 5.4 10x3/uL (4.8-10.8)
[2022-10-28 06:19] LABS: Anion Gap 17 mmol/L (10-20); BUN (Urea Nitrogen) 67 mg/dL (8.9-20.6); Calc. Creatinine Clearance 12 mL/min (70-130); Calcium 7.7 mg/dL (7.8-10.44); Carbon Dioxide 22 mmol/L (22-29); Chloride 105 mmol/L (98-107); Estimated GFR 8; Glucose 82 mg/dL (70-105); Potassium 5.1 mmol/L (3.5-5.1); Sodium 139 mmol/L (136-145)
[2022-10-28] MEDS: Carvedilol 3.125 MG TAB PO SCH ×2 (09:53→17:46)
[2022-10-28] MEDS: Pantoprazole 40 MG VIAL IVP SCH (09:58)
[2022-10-28] MEDS: Bacitracin 1 PK TOP SCH ×3 (09:58→21:17)
[2022-10-28] MEDS: Senokot S 8.6-50 MG TAB PER TUBE SCH ×2 (09:59→20:54)
[2022-10-28] MEDS ORDERED: PROPOFOL 40 ML ONE (11:26)
[2022-10-28] MEDS ORDERED: fentaNYL PF 100 MCG/2 ML SYRINGE ONE (11:26)
[2022-10-28] MEDS ORDERED: Bupivacaine HCl 0.5%/Epinephrine 1:200,000/PF 30 ml Vial ONE (11:48)
[2022-10-28] MEDS ORDERED: Heparin 10,000 UNITS/ 10 ML VIAL ONE (11:48)
[2022-10-28] MEDS ORDERED: Lidocaine 1% (PF) 30 ML VIAL ONE (11:48)
[2022-10-28] MEDS ORDERED: Promethazine HCl 25 MG/ML VIAL IM PRN (12:24)
[2022-10-28] MEDS ORDERED: Ondansetron HCl/PF 4 MG/2 ML Vial IVP PRN (12:24)
[2022-10-28] MEDS ORDERED: Dextrose 50% Abboject 50 ML SYRINGE ONE (13:21)
[2022-10-28] MEDS ORDERED: Phenylephrine 10 MG/ML VIAL ONE (13:52)
[2022-10-28] MEDS ORDERED: PROPOFOL 200 MG/20 ML VIAL ONE (13:52)
[2022-10-28] MEDS ORDERED: Protamine Sulfate 250 MG/25 ML VIAL ONE (14:10)
[2022-10-28] MEDS ORDERED: Guaifenesin DM 100-10/5 ML UDCUP PO PRN (20:18)
[2022-10-29 00:56] LABS: #Lymphocytes 0.5 thou/uL (1.20-3.40); #Monocytes 0.2 thou/uL (0.11-0.59); #Neutrophils 2.4 thou/uL (1.40-6.50); %Basophils 0.4 % (0.0-1.0); %Eosinophils 0.9 % (0.0-10.0); %Monocytes 6.7 % (0.0-10.0); %Neutrophils 76.9 % (42.0-75.0); Hemoglobin 6.6 g/dL (14.0-18.0); Mean Corpuscular Hemoglobin 32.5 pg (27.0-31.0); Mean Corpuscular Volume 98.5 fl (78.0-98.0); Mean Platelet Volume 9.9 fL (7.4-10.4); Platelet Count 72 10x3/uL (130-400); Red Blood Cell (RBC) Count 2.02 mill/uL (4.70-6.10); White Blood Cell (WBC) Count 3.1 10x3/uL (4.8-10.8)
[2022-10-29 01:14] LABS: Anion Gap 15 mmol/L (10-20); BUN (Urea Nitrogen) 40 mg/dL (8.9-20.6); Calc. Creatinine Clearance 18 mL/min (70-130); Calcium 7.4 mg/dL (7.8-10.44); Carbon Dioxide 25 mmol/L (22-29); Chloride 102 mmol/L (98-107); Estimated GFR 13; Glucose 104 mg/dL (70-105); Potassium 4.1 mmol/L (3.5-5.1); Sodium 138 mmol/L (136-145)
[2022-10-29] MEDS: Dextrose 5%-Lactated Ringers 1,000 ML IV SCH ×2 (01:21→21:18)
[2022-10-29] MEDS: Oxacillin 2 GM in Sodium Chloride 0.9% 100 ML IVPB SCH ×6 (01:21→21:19)
[2022-10-29 01:30] LABS: INR-International Normal Ratio 1.3; Prothrombin Time 16.4 sec (12.0-14.7)
[2022-10-29 01:31] LABS: PTT 45.6 sec (22.9-36.1)
[2022-10-29] MEDS: Levothyroxine Sodium 125 MCG TAB PO SCH (04:44)
[2022-10-29 05:18] LABS: #Lymphocytes 0.6 thou/uL (1.20-3.40); #Monocytes 0.2 thou/uL (0.11-0.59); #Neutrophils 2.7 thou/uL (1.40-6.50); %Basophils 0.2 % (0.0-1.0); %Eosinophils 0.6 % (0.0-10.0); %Lymphocytes 17.8 % (21.0-51.0); %Monocytes 5.3 % (0.0-10.0); %Neutrophils 76.1 % (42.0-75.0); Hemoglobin 7.9 g/dL (14.0-18.0); Mean Corpuscular HGB CONC 32.8 g/dL (32.0-36.0); Mean Corpuscular Hemoglobin 32.3 pg (27.0-31.0); Mean Corpuscular Volume 98.4 fl (78.0-98.0); Platelet Count 70 10x3/uL (130-400); RBC Distribution Width 13.4 % (11.5-14.5); Red Blood Cell (RBC) Count 2.44 mill/uL (4.70-6.10); White Blood Cell (WBC) Count 3.5 10x3/uL (4.8-10.8)
[2022-10-29 05:30] LABS: Anion Gap 16 mmol/L (10-20); BUN (Urea Nitrogen) 42 mg/dL (8.9-20.6); Calc. Creatinine Clearance 18 mL/min (70-130); Calcium 7.5 mg/dL (7.8-10.44); Carbon Dioxide 24 mmol/L (22-29); Chloride 101 mmol/L (98-107); Estimated GFR 13; Glucose 76 mg/dL (70-105); Potassium 4.2 mmol/L (3.5-5.1); Sodium 137 mmol/L (136-145)
[2022-10-29] MEDS ORDERED: Lidocaine 1% w/Epinephrine 1:100K 20 ML VIAL FS SCH (07:00)
[2022-10-29] MEDS: Senokot S 8.6-50 MG TAB PER TUBE SCH ×2 (08:49→21:26)
[2022-10-29] MEDS: Carvedilol 3.125 MG TAB PO SCH ×2 (08:51→16:05)
[2022-10-29] MEDS: Bacitracin 1 PK TOP SCH ×3 (08:52→22:14)
[2022-10-29] MEDS: Pantoprazole 40 MG VIAL IVP SCH (08:52)
[2022-10-29 17:21] LABS: #Eosinphils 0.1 thou/uL (0.0-0.7); #Lymphocytes 0.8 thou/uL (1.20-3.40); #Monocytes 0.2 thou/uL (0.11-0.59); #Neutrophils 3.4 thou/uL (1.40-6.50); %Basophils 0.3 % (0.0-1.0); %Lymphocytes 17.7 % (21.0-51.0); %Monocytes 3.8 % (0.0-10.0); %Neutrophils 76.3 % (42.0-75.0); Hemoglobin 7.9 g/dL (14.0-18.0); Mean Corpuscular HGB CONC 32.9 g/dL (32.0-36.0); Mean Corpuscular Hemoglobin 32.1 pg (27.0-31.0); Mean Corpuscular Volume 97.4 fl (78.0-98.0); Mean Platelet Volume 9.1 fL (7.4-10.4); Platelet Count 99 10x3/uL (130-400); RBC Distribution Width 13.6 % (11.5-14.5); Red Blood Cell (RBC) Count 2.46 mill/uL (4.70-6.10); White Blood Cell (WBC) Count 4.4 10x3/uL (4.8-10.8)
[2022-10-29 17:40] LABS: INR-International Normal Ratio 1.2; Prothrombin Time 15.7 sec (12.0-14.7)
[2022-10-29 17:41] LABS: PTT 43.2 sec (22.9-36.1)
[2022-10-30] MEDS: Oxacillin 2 GM in Sodium Chloride 0.9% 100 ML IVPB SCH ×6 (01:51→21:24)
[2022-10-30 04:49] LABS: #Lymphocytes 0.8 thou/uL (1.20-3.40); #Monocytes 0.2 thou/uL (0.11-0.59); #Neutrophils 2.9 thou/uL (1.40-6.50); %Basophils 0.1 % (0.0-1.0); %Lymphocytes 19.2 % (21.0-51.0); %Monocytes 5.4 % (0.0-10.0); %Neutrophils 74.3 % (42.0-75.0); Hemoglobin 7.5 g/dL (14.0-18.0); Mean Corpuscular HGB CONC 33.4 g/dL (32.0-36.0); Mean Corpuscular Hemoglobin 32.6 pg (27.0-31.0); Mean Corpuscular Volume 97.8 fl (78.0-98.0); Mean Platelet Volume 9.4 fL (7.4-10.4); Platelet Count 96 10x3/uL (130-400); RBC Distribution Width 13.5 % (11.5-14.5); Red Blood Cell (RBC) Count 2.29 mill/uL (4.70-6.10)
[2022-10-30 05:05] LABS: Anion Gap 16 mmol/L (10-20); BUN (Urea Nitrogen) 54 mg/dL (8.9-20.6); Calc. Creatinine Clearance 13 mL/min (70-130); Calcium 7.2 mg/dL (7.8-10.44); Carbon Dioxide 23 mmol/L (22-29); Chloride 103 mmol/L (98-107); Estimated GFR 9; Glucose 76 mg/dL (70-105); INR-International Normal Ratio 1.3; Potassium 4.5 mmol/L (3.5-5.1); Prothrombin Time 16.2 sec (12.0-14.7); Sodium 137 mmol/L (136-145)
[2022-10-30 05:06] LABS: PTT 46.1 sec (22.9-36.1)
[2022-10-30] MEDS: Levothyroxine Sodium 125 MCG TAB PO SCH (06:35)
[2022-10-30] MEDS: EPOETIN ALFA-EPBX (ESRD) 10,000 UNIT/ML VIAL IVP SCH (12:09)
[2022-10-30] MEDS: Pantoprazole 40 MG VIAL IVP SCH (13:17)
[2022-10-30] MEDS: Carvedilol 3.125 MG TAB PO SCH ×2 (13:17→17:18)
[2022-10-30] MEDS: Bacitracin 1 PK TOP SCH ×3 (13:17→21:24)
[2022-10-30] MEDS: Senokot S 8.6-50 MG TAB PER TUBE SCH ×2 (13:18→21:15)
[2022-10-30] MEDS: Acetaminophen 650 MG/20.3 ML UDCUP PO PRN (13:27)
[2022-10-30] MEDS: Dextrose 5%-Lactated Ringers 1,000 ML IV SCH (17:17)
[2022-10-31] MEDS: Oxacillin 2 GM in Sodium Chloride 0.9% 100 ML IVPB SCH ×6 (00:03→21:22)
[2022-10-31] MEDS: Levothyroxine Sodium 125 MCG TAB PO SCH (05:03)
[2022-10-31] MEDS: Carvedilol 3.125 MG TAB PO SCH ×2 (09:00→17:40)
[2022-10-31] MEDS: Bacitracin 1 PK TOP SCH ×3 (09:00→21:22)
[2022-10-31] MEDS: Pantoprazole 40 MG VIAL IVP SCH (09:01)
[2022-10-31] MEDS: Acetaminophen 650 MG/20.3 ML UDCUP PO PRN ×2 (09:02→18:43)
[2022-10-31] MEDS: Senokot S 8.6-50 MG TAB PER TUBE SCH ×2 (09:07→20:58)
[2022-10-31] MEDS: Dextrose 5%-Lactated Ringers 1,000 ML IV SCH (13:21)
[2022-10-31] MEDS ORDERED: Lidocaine 4% Patch TD SCH (18:45)
[2022-10-31] MEDS ORDERED: Mag-Al Plus 1200 MG/1200 MG/120 MG/30 ML UDCUP PO SCH (20:45)
[2022-11-01] MEDS: Oxacillin 2 GM in Sodium Chloride 0.9% 100 ML IVPB SCH ×6 (01:40→21:01)
[2022-11-01] MEDS: Levothyroxine Sodium 125 MCG TAB PO SCH (06:15)
[2022-11-01] MEDS ORDERED: Transdermal Patch Removal TOP SCH (07:00)
[2022-11-01] MEDS: Bacitracin 1 PK TOP SCH ×3 (07:39→21:01)
[2022-11-01] MEDS: Senokot S 8.6-50 MG TAB PER TUBE SCH ×2 (07:40→21:01)
[2022-11-01] MEDS: Pantoprazole 40 MG VIAL IVP SCH (07:40)
[2022-11-01 07:57] LABS: Hemoglobin 7.7 g/dL (14.0-18.0); Mean Corpuscular HGB CONC 31.7 g/dL (32.0-36.0); Mean Corpuscular Hemoglobin 31.7 pg (27.0-31.0); Mean Corpuscular Volume 99.8 fl (78.0-98.0); Mean Platelet Volume 10.2 fL (7.4-10.4); Platelet Count 72 10x3/uL (130-400); RBC Distribution Width 13.9 % (11.5-14.5); Red Blood Cell (RBC) Count 2.43 mill/uL (4.70-6.10); White Blood Cell (WBC) Count 3.7 10x3/uL (4.8-10.8)
[2022-11-01 08:14] LABS: Anion Gap 16 mmol/L (10-20); BUN (Urea Nitrogen) 46 mg/dL (8.9-20.6); Calc. Creatinine Clearance 13 mL/min (70-130); Calcium 7.5 mg/dL (7.8-10.44); Carbon Dioxide 25 mmol/L (22-29); Chloride 104 mmol/L (98-107); Estimated GFR 9; Glucose 74 mg/dL (70-105); Potassium 4.7 mmol/L (3.5-5.1); Sodium 140 mmol/L (136-145)
[2022-11-01 08:36] LABS: Band 10 % (5-11); Eosinophils 6 % (0-10); Lymphocytes 20 % (21-51); MDiff Complete? YES; Macrocytosis SLIGHT = 6-15 cells (100X) (0-5/hpf); Neutrophil 61 % (42-75); Ovalocytes SLIGHT = 2-5 cells (100X) (0-1/hpf); Platelet Morphology Comment Appears Decreased; Polychromasia SLIGHT = 2-3 cells (100X) (0-2/hpf); Reactive Lymphocytes 3 % (0-10)
[2022-11-01] MEDS: Dextrose 5%-Lactated Ringers 1,000 ML IV SCH (12:28)
[2022-11-01] MEDS: Carvedilol 3.125 MG TAB PO SCH (12:32)
[2022-11-01] MEDS: EPOETIN ALFA-EPBX (ESRD) 10,000 UNIT/ML VIAL IVP SCH (15:14)
[2022-11-01] MEDS: Carvedilol 6.25 MG TAB PO SCH (18:54)
[2022-11-01] MEDS: Acetaminophen 650 MG/20.3 ML UDCUP PO PRN (20:06)
[2022-11-01] MEDS ORDERED: Acetaminophen 325 MG TAB PO SCH (20:45)
[2022-11-01] MEDS: Sacubitril 24MG/Valsartan 26 MG TAB PO SCH (21:00)
[2022-11-02] MEDS: Oxacillin 2 GM in Sodium Chloride 0.9% 100 ML IVPB SCH ×4 (02:40→12:33)
[2022-11-02] MEDS: Dextrose 5%-Lactated Ringers 1,000 ML IV SCH (05:41)
[2022-11-02 05:48] LABS: Anion Gap 16 mmol/L (10-20); BUN (Urea Nitrogen) 28 mg/dL (8.9-20.6); Calc. Creatinine Clearance 19 mL/min (70-130); Calcium 7.4 mg/dL (7.8-10.44); Carbon Dioxide 23 mmol/L (22-29); Chloride 103 mmol/L (98-107); Estimated GFR 14; Glucose 103 mg/dL (70-105); Potassium 3.9 mmol/L (3.5-5.1); Sodium 138 mmol/L (136-145)
[2022-11-02] MEDS: Levothyroxine Sodium 125 MCG TAB PO SCH (07:28)
[2022-11-02] MEDS: Sacubitril 24MG/Valsartan 26 MG TAB PO SCH ×2 (09:00→21:05)
[2022-11-02] MEDS: Carvedilol 6.25 MG TAB PO SCH ×2 (09:00→17:05)
[2022-11-02] MEDS: Bacitracin 1 PK TOP SCH ×3 (09:01→21:05)
[2022-11-02] MEDS: Senokot S 8.6-50 MG TAB PER TUBE SCH ×2 (09:01→21:05)
[2022-11-02] MEDS: Pantoprazole 40 MG VIAL IVP SCH (09:01)
[2022-11-02] MEDS ORDERED: CEFAZOLIN 2 GM in Sodium Chloride 0.9% 100 ML IVPB SCH (16:30)
[2022-11-03] MEDS: Acetaminophen 650 MG/20.3 ML UDCUP PO PRN ×2 (01:39→21:16)
[2022-11-03] MEDS: Dextrose 5%-Lactated Ringers 1,000 ML IV SCH ×2 (01:40→22:12)
[2022-11-03 04:46] LABS: Anion Gap 15 mmol/L (10-20); BUN (Urea Nitrogen) 39 mg/dL (8.9-20.6); Calc. Creatinine Clearance 15 mL/min (70-130); Calcium 7.2 mg/dL (7.8-10.44); Carbon Dioxide 25 mmol/L (22-29); Chloride 105 mmol/L (98-107); Estimated GFR 10; Glucose 95 mg/dL (70-105); Potassium 3.9 mmol/L (3.5-5.1); Sodium 141 mmol/L (136-145)
[2022-11-03 04:55] LABS: #Eosinphils 0.1 thou/uL (0.0-0.7); #Lymphocytes 1.1 thou/uL (1.20-3.40); #Monocytes 0.2 thou/uL (0.11-0.59); #Neutrophils 1.6 thou/uL (1.40-6.50); %Basophils 0.6 % (0.0-1.0); %Eosinophils 1.7 % (0.0-10.0); %Lymphocytes 37.8 % (21.0-51.0); %Monocytes 5.8 % (0.0-10.0); %Neutrophils 54.1 % (42.0-75.0); Hemoglobin 7.3 g/dL (14.0-18.0); Mean Corpuscular HGB CONC 34.4 g/dL (32.0-36.0); Mean Corpuscular Hemoglobin 34.7 pg (27.0-31.0); Mean Platelet Volume 9.5 fL (7.4-10.4); Platelet Count 76 10x3/uL (130-400); RBC Distribution Width 14.2 % (11.5-14.5); White Blood Cell (WBC) Count 2.9 10x3/uL (4.8-10.8)
[2022-11-03] MEDS: Levothyroxine Sodium 125 MCG TAB PO SCH (05:28)
[2022-11-03] MEDS: Carvedilol 6.25 MG TAB PO SCH ×2 (08:20→18:09)
[2022-11-03] MEDS: Sacubitril 24MG/Valsartan 26 MG TAB PO SCH ×2 (08:20→21:16)
[2022-11-03] MEDS: Senokot S 8.6-50 MG TAB PER TUBE SCH ×2 (08:21→22:08)
[2022-11-03] MEDS: Bacitracin 1 PK TOP SCH ×3 (08:21→21:17)
[2022-11-03] MEDS: Pantoprazole 40 MG VIAL IVP SCH (08:21)
[2022-11-03] MEDS ORDERED: Heparin 5,000 UNITS/ML VIAL SC SCH (21:00)
[2022-11-04 04:28] LABS: #Lymphocytes 1.2 thou/uL (1.20-3.40); #Monocytes 0.2 thou/uL (0.11-0.59); #Neutrophils 1.4 thou/uL (1.40-6.50); %Basophils 0.6 % (0.0-1.0); %Eosinophils 0.3 % (0.0-10.0); %Lymphocytes 41.8 % (21.0-51.0); %Monocytes 8.1 % (0.0-10.0); %Neutrophils 49.2 % (42.0-75.0); Hemoglobin 6.5 g/dL (14.0-18.0); Mean Corpuscular HGB CONC 35.1 g/dL (32.0-36.0); Mean Corpuscular Volume 99.7 fl (78.0-98.0); Mean Platelet Volume 10.1 fL (7.4-10.4); Platelet Count 72 10x3/uL (130-400); RBC Distribution Width 14.2 % (11.5-14.5); Red Blood Cell (RBC) Count 1.86 mill/uL (4.70-6.10); White Blood Cell (WBC) Count 2.8 10x3/uL (4.8-10.8)
[2022-11-04 04:51] LABS: Anion Gap 15 mmol/L (10-20); BUN (Urea Nitrogen) 48 mg/dL (8.9-20.6); Calc. Creatinine Clearance 12 mL/min (70-130); Calcium 7.3 mg/dL (7.8-10.44); Carbon Dioxide 25 mmol/L (22-29); Chloride 104 mmol/L (98-107); Estimated GFR 8; Glucose 96 mg/dL (70-105); Potassium 4.1 mmol/L (3.5-5.1); Sodium 140 mmol/L (136-145)
[2022-11-04] MEDS: Levothyroxine Sodium 125 MCG TAB PO SCH (05:54)
[2022-11-04] MEDS: Bacitracin 1 PK TOP SCH ×3 (08:24→20:17)
[2022-11-04] MEDS: Sacubitril 24MG/Valsartan 26 MG TAB PO SCH ×2 (08:24→20:17)
[2022-11-04] MEDS: Carvedilol 6.25 MG TAB PO SCH (08:24)
[2022-11-04] MEDS: EPOETIN ALFA-EPBX (ESRD) 10,000 UNIT/ML VIAL IVP SCH (08:25)
[2022-11-04] MEDS: Acetaminophen 650 MG/20.3 ML UDCUP PO PRN ×2 (08:37→20:17)
[2022-11-04] MEDS: Senokot S 8.6-50 MG TAB PER TUBE SCH ×2 (10:14→20:17)
[2022-11-04] MEDS ORDERED: CEFAZOLIN 2 GM in Sodium Chloride 0.9% 100 ML IVPB SCH (17:00)
[2022-11-04] MEDS: Carvedilol 3.125 MG TAB PO SCH (18:21)
[2022-11-04] MEDS: Dextrose 5%-Lactated Ringers 1,000 ML IV SCH (18:21)
[2022-11-05 05:10] LABS: #Lymphocytes 1.3 thou/uL (1.20-3.40); #Monocytes 0.3 thou/uL (0.11-0.59); #Neutrophils 1.9 thou/uL (1.40-6.50); %Basophils 1.1 % (0.0-1.0); %Eosinophils 0.2 % (0.0-10.0); %Lymphocytes 37.2 % (21.0-51.0); %Monocytes 8.2 % (0.0-10.0); %Neutrophils 53.2 % (42.0-75.0); Hemoglobin 9.7 g/dL (14.0-18.0); Mean Corpuscular HGB CONC 33.7 g/dL (32.0-36.0); Mean Corpuscular Hemoglobin 31.8 pg (27.0-31.0); Mean Corpuscular Volume 94.3 fl (78.0-98.0); Mean Platelet Volume 10.5 fL (7.4-10.4); Platelet Count 73 10x3/uL (130-400); Red Blood Cell (RBC) Count 3.04 mill/uL (4.70-6.10); White Blood Cell (WBC) Count 3.6 10x3/uL (4.8-10.8)
[2022-11-05 05:26] LABS: Anion Gap 14 mmol/L (10-20); BUN (Urea Nitrogen) 28 mg/dL (8.9-20.6); Calc. Creatinine Clearance 18 mL/min (70-130); Calcium 7.3 mg/dL (7.8-10.44); Carbon Dioxide 26 mmol/L (22-29); Chloride 103 mmol/L (98-107); Estimated GFR 13; Glucose 82 mg/dL (70-105); Sodium 139 mmol/L (136-145)
[2022-11-05] MEDS: Levothyroxine Sodium 125 MCG TAB PO SCH (05:48)
[2022-11-05] MEDS: Acetaminophen 650 MG/20.3 ML UDCUP PO PRN ×3 (07:48→20:39)
[2022-11-05] MEDS: Carvedilol 3.125 MG TAB PO SCH ×2 (07:49→18:23)
[2022-11-05] MEDS: Senokot S 8.6-50 MG TAB PER TUBE SCH ×2 (09:18→20:40)
[2022-11-05] MEDS: Sacubitril 24MG/Valsartan 26 MG TAB PO SCH ×2 (09:18→20:38)
[2022-11-05] MEDS: Bacitracin 1 PK TOP SCH ×2 (09:18→15:32)
[2022-11-05 14:17] VITALS: BMI 26.4
[2022-11-05] MEDS ORDERED: Vancomycin 1.5 GRAM/300 ML BAG 1.5 GM in Premix Bag 1 BAG IVPB SCH ×2 (17:15→17:45)
[2022-11-05] MEDS ORDERED: Vancomycin Diaylsis Sliding Scale (Wt 71-99) FS SCH (17:45)
[2022-11-06] MEDS: Acetaminophen 650 MG/20.3 ML UDCUP PO PRN ×2 (02:00→09:57)
[2022-11-06] MEDS: Levothyroxine Sodium 125 MCG TAB PO SCH (05:31)
[2022-11-06 06:55] LABS: Hemoglobin 8.4 g/dL (14.0-18.0); Mean Corpuscular HGB CONC 32.5 g/dL (32.0-36.0); Mean Corpuscular Hemoglobin 30.7 pg (27.0-31.0); Mean Corpuscular Volume 94.3 fl (78.0-98.0); Mean Platelet Volume 10.7 fL (7.4-10.4); Platelet Count 61 10x3/uL (130-400); Red Blood Cell (RBC) Count 2.74 mill/uL (4.70-6.10); White Blood Cell (WBC) Count 0.9 10x3/uL (4.8-10.8)
[2022-11-06 07:05] LABS: Vancomycin, Random 9.8 ug/mL (See Comment)
[2022-11-06 07:07] LABS: Anion Gap 12 mmol/L (10-20); BUN (Urea Nitrogen) 28 mg/dL (8.9-20.6); Calc. Creatinine Clearance 16 mL/min (70-130); Calcium 7.1 mg/dL (7.8-10.44); Carbon Dioxide 27 mmol/L (22-29); Chloride 103 mmol/L (98-107); Estimated GFR 11; Glucose 86 mg/dL (70-105); Potassium 4.2 mmol/L (3.5-5.1); Sodium 138 mmol/L (136-145)
[2022-11-06 08:38] LABS: Hemoglobin 8.9 g/dL (14.0-18.0); Mean Corpuscular HGB CONC 33.8 g/dL (32.0-36.0); Mean Corpuscular Hemoglobin 32.2 pg (27.0-31.0); Mean Corpuscular Volume 95.2 fl (78.0-98.0); Mean Platelet Volume 10.5 fL (7.4-10.4); Platelet Count 57 10x3/uL (130-400); Red Blood Cell (RBC) Count 2.78 mill/uL (4.70-6.10); White Blood Cell (WBC) Count 0.9 10x3/uL (4.8-10.8)
[2022-11-06 10:03] LABS: Band 10 % (5-11); Burr Cells SLIGHT = 2-5 cells (100X) (0-1/hpf); Lymphocytes 45 % (21-51); MDiff Complete? YES; Metamyelocyte 5 % (0-0); Monocytes 15 % (0-10); Neutrophil 15 % (42-75); Ovalocytes SLIGHT = 2-5 cells (100X) (0-1/hpf); Platelet Morphology Comment Appears Decreased; Polychromasia SLIGHT = 2-3 cells (100X) (0-2/hpf); Reactive Lymphocytes 10 % (0-10)
[2022-11-06 10:21] LABS: Band 20 % (5-11); Burr Cells SLIGHT = 2-5 cells (100X) (0-1/hpf); Lymphocytes 45 % (21-51); MDiff Complete? YES; Metamyelocyte 3 % (0-0); Monocytes 8 % (0-10); Neutrophil 23 % (42-75); Nucleated RBC 1 % (0); Platelet Morphology Comment Appears Decreased; Polychromasia SLIGHT = 2-3 cells (100X) (0-2/hpf)
[2022-11-06] MEDS ORDERED: Dextrose 5 % And 0.9 % NaCl 1,000 ML IV SCH (10:45)
[2022-11-06] MEDS: Carvedilol 3.125 MG TAB PO SCH ×2 (11:12→16:54)
[2022-11-06] MEDS: Senokot S 8.6-50 MG TAB PER TUBE SCH ×2 (11:12→19:42)
[2022-11-06] MEDS: Sacubitril 24MG/Valsartan 26 MG TAB PO SCH (11:12)
[2022-11-06] MEDS ORDERED: Vancomycin 1 GM in Premix Bag 1 BAG IVPB SCH (11:15)
[2022-11-06] MEDS ORDERED: Sodium Chloride 0.9% 1,000 ML IV SCH (11:45)
[2022-11-06] MEDS: NOREPINEPHRINE 8 MG/250 ML-D5W 250 ML IVPB SCH ×2 (13:13→19:11)
[2022-11-06] MEDS: EPOETIN ALFA-EPBX (ESRD) 10,000 UNIT/ML VIAL IVP SCH (14:34)
[2022-11-06] MEDS: Vasopressin 20 UNIT, Admixture Fee 1 EACH in Sodium Chloride 0.9% 50 ML IV SCH ×2 (15:20→20:36)
[2022-11-06] MEDS ORDERED: Iopamidol-370 76% 500 ML MDV (1 ML CHARGE) ONE (15:30)
[2022-11-06] MEDS ORDERED: Micafungin 100 MG in Sodium Chloride 0.9% 100 ML IVPB SCH (16:00)
[2022-11-06] MEDS ORDERED: Morphine 2 MG/ML VIAL SLOW IVP PRN (16:59)
[2022-11-06] MEDS ORDERED: VANCOMYCIN 1.25 GM/250 ML BAG 1.25 GM in Premix Bag 1 BAG IVPB SCH (17:00)
[2022-11-06 17:54] LABS: Glucose 30 mg/dL (70-105)
[2022-11-06] MEDS ORDERED: Dextrose 10% in Water 1,000 ML IV SCH (20:00)
[2022-11-06 20:02] LABS: Actual Bicarbonate (HCO3a) 18.7 mEq/L (22-28); Base Excess (BEa) -5.9 mEq/L (-2.0 to +3.0); CO2 Tension 32.7 mmHg (35.0-45.0); Calcium, Ionized (arterial) 1.01 mmol/L (1.12-1.30); Hemoglobin (Hb) 6.7 g/dL (14.0-18.0); Potassium - ABG Lab 3.99 mmol/L (3.70-5.30); pH, Arterial 7.375 (7.35-7.45)
[2022-11-06] MEDS ORDERED: Ipratropium/Albuterol 3 ML NEB NEB PRN (20:02)
[2022-11-06 20:05] LABS: Puncture Site RRA
[2022-11-06 20:06] LABS: ALV-art Gradient 148.775 mmHg (0-20)
[2022-11-06] MEDS ORDERED: Meropenem 500 MG in Sodium Chloride 0.9% 100 ML IVPB SCH (21:00)
[2022-11-06] MEDS ORDERED: Dextrose 5 %-0.45 % NaCl 1,000 ML IV SCH (21:30)
[2022-11-06] MEDS ORDERED: EPINEPHrine 1 MG/10 ML Abboject SYRINGE ONE (22:00)
[2022-11-06] MEDS: EPINEPHrine 4 MG in Dextrose 5% in Water 250 ML IV SCH (22:00)
[2022-11-06] MEDS ORDERED: Sodium Bicarb 50 MEQ/50 ML VIAL ONE (22:00)
[2022-11-06] MEDS ORDERED: Calcium Chloride 1 GM/10 ML Abboject SYRINGE ONE (22:00)
[2022-11-06 22:29] LABS: ALT (SGPT) Less than 7 U/L (8-55); AST (SGOT) 70 U/L (5-34); Albumin 1.7 g/dL (3.5-5.0); Alkaline Phosphatase 77 U/L (40-110); Anion Gap 20 mmol/L (10-20); BUN (Urea Nitrogen) 32 mg/dL (8.9-20.6); Bilirubin, Total 0.6 mg/dL (0.2-1.2); Calc. Creatinine Clearance 14 mL/min (70-130); Carbon Dioxide 16 mmol/L (22-29); Chloride 104 mmol/L (98-107); Estimated GFR 10; Globulin 3.2 g/dL (2.4-3.5); Glucose 94 mg/dL (70-105); Potassium 4.4 mmol/L (3.5-5.1); Protein, Total 4.9 g/dL (6.0-8.3); Sodium 136 mmol/L (136-145)
[2022-11-06 22:32] LABS: Calcium 6.8 mg/dL (7.8-10.44)
[2022-11-06] MEDS ORDERED: EPINEPHrine 1 MG/ML AMP ONE (22:48)
[2022-11-06 22:56] LABS: Base Excess (BEa) -9.5 mEq/L (-2.0 to +3.0); CO2 Tension 47.4 mmHg (35.0-45.0); Calcium, Ionized (arterial) 1.37 mmol/L (1.12-1.30); Carboxyhemoglobin (COHb) 0.5 gm% (0.0-3.0); Hemoglobin (Hb) 7.8 g/dL (14.0-18.0); O2 Tension (PaO2), arterial 72.4 mmHg (80.0-100.0); Potassium - ABG Lab 4.33 mmol/L (3.70-5.30)
[2022-11-06 22:58] LABS: Puncture Site RRA
[2022-11-07 01:32] LABS: Actual Bicarbonate (HCO3a) 16.8 mEq/L (22-28); Base Excess (BEa) -7.5 mEq/L (-2.0 to +3.0); CO2 Tension 29.4 mmHg (35.0-45.0); Calcium, Ionized (arterial) 1.03 mmol/L (1.12-1.30); Carboxyhemoglobin (COHb) 0.4 gm% (0.0-3.0); Hemoglobin (Hb) 8.1 g/dL (14.0-18.0); Potassium - ABG Lab 4.33 mmol/L (3.70-5.30); pH, Arterial 7.375 (7.35-7.45)
[2022-11-07 01:41] LABS: Puncture Site RRA
[2022-11-07] MEDS: NOREPINEPHRINE 8 MG/250 ML-D5W 250 ML IVPB SCH ×2 (03:21→08:09)
[2022-11-07] MEDS ORDERED: Dextrose 10% in Water 1,000 ML IV SCH (03:30)
[2022-11-07 04:13] LABS: INR-International Normal Ratio 2.5; Prothrombin Time 28.4 sec (12.0-14.7)
[2022-11-07 04:14] LABS: Fibrinogen 256 mg/dL (253-463)
[2022-11-07 04:16] LABS: Lactic Acid 10.5 mmol/L (0.5-2.2)
[2022-11-07 04:20] LABS: PTT 154.2 sec (22.9-36.1)
[2022-11-07 04:23] LABS: Magnesium 1.8 mg/dL (1.6-2.6)
[2022-11-07 04:24] LABS: ALT (SGPT) Less than 7 U/L (8-55); AST (SGOT) 225 U/L (5-34); Albumin 1.6 g/dL (3.5-5.0); Alkaline Phosphatase 84 U/L (40-110); Anion Gap 26 mmol/L (10-20); BUN (Urea Nitrogen) 35 mg/dL (8.9-20.6); Bilirubin, Total 0.8 mg/dL (0.2-1.2); Calc. Creatinine Clearance 14 mL/min (70-130); Carbon Dioxide 13 mmol/L (22-29); Chloride 101 mmol/L (98-107); Estimated GFR 10; Globulin 3.3 g/dL (2.4-3.5); Hemoglobin 8.5 g/dL (14.0-18.0); Mean Corpuscular HGB CONC 34.2 g/dL (32.0-36.0); Mean Corpuscular Hemoglobin 33.3 pg (27.0-31.0); Mean Corpuscular Volume 97.4 fl (78.0-98.0); Mean Platelet Volume 14.2 fL (7.4-10.4); Platelet Count 21 10x3/uL (130-400); Potassium 4.5 mmol/L (3.5-5.1); Protein, Total 4.9 g/dL (6.0-8.3); RBC Distribution Width 17.6 % (11.5-14.5); Red Blood Cell (RBC) Count 2.55 mill/uL (4.70-6.10); Sodium 135 mmol/L (136-145); White Blood Cell (WBC) Count 0.5 10x3/uL (4.8-10.8)
[2022-11-07 04:30] LABS: Glucose 42 mg/dL (70-105)
[2022-11-07] MEDS: Vasopressin 20 UNIT, Admixture Fee 1 EACH in Sodium Chloride 0.9% 50 ML IV SCH (04:32)
[2022-11-07] MEDS: EPINEPHrine 4 MG in Dextrose 5% in Water 250 ML IV SCH ×2 (04:32→08:10)
[2022-11-07] MEDS ORDERED: Calcium Gluc 4.6 MEQ/10 ML (100 MG/ML) SLOW IVP ONE (04:37)
[2022-11-07] MEDS: Levothyroxine Sodium 125 MCG TAB PO SCH (04:42)
[2022-11-07] MEDS ORDERED: CALCIUM GLUC 1 GM/NS 50 ML 1 GM in Premix Bag 1 BAG IVPB SCH (04:45)
[2022-11-07] MEDS ORDERED: Sodium Bicarb 50 MEQ/50 ML VIAL IVP SCH (04:45)
[2022-11-07 04:51] LABS: CKMB 6.9 ng/mL (0-6.6)
[2022-11-07] MEDS ORDERED: Sodium Bicarbonate 150 MEQ in Dextrose 5% in Water 1,000 ML IV SCH (05:00)
[2022-11-07] MEDS ORDERED: Dextrose 50% Abboject 50 ML SYRINGE ONE (05:16)
[2022-11-07] MEDS ORDERED: Ventilator Sedation Protocol 1 EACH FS ONE (05:18)
[2022-11-07] MEDS ORDERED: Dextrose 50% Abboject 50 ML SYRINGE SLOW IVP PRN (05:19)
[2022-11-07] MEDS ORDERED: Propofol 1,000 MG/100 ML VIAL IV PRN (05:30)
[2022-11-07] MEDS ORDERED: Propofol BOLUS 1,000 MG/100 ML VIAL IV PRN (05:30)
[2022-11-07] MEDS ORDERED: Fentanyl BOLUS 250 ML IVPB PRN (05:30)
[2022-11-07] MEDS ORDERED: Lorazepam 2 MG/ML VIAL SLOW IVP PRN (05:30)
[2022-11-07] MEDS ORDERED: Fentanyl CADD 100 ML IV SCH (05:30)
[2022-11-07] MEDS ORDERED: Morphine 2 MG/ML VIAL SLOW IVP PRN (05:30)
[2022-11-07] MEDS ORDERED: DISCONTINUE PREVIOUS NARCOTIC PAIN MEDICATIONS AND BENZODIAZEPINES FS SCH (05:30)
[2022-11-07 06:19] LABS: Base Excess -9.9 mEq/L (-2.0 to +3.0); Calcium, Ionized (venous) 0.95 mmol/L (1.16-1.32); Chloride (VBG) 99 mmol/L (98-106); Hemoglobin (Hb) 8.1 g/dL (13.1-17.2); Potassium (VBG) 4.14 mmol/L (3.70-5.30); Sodium 132.3 mmol/L (133-146); pH (venous) 7.39 (7.32-7.43)
[2022-11-07 06:21] LABS: Actual Bicarbonate (HCO3v) 14 mEq/L (22-28)
[2022-11-07 07:03] LABS: Vancomycin, Random 20.3 ug/mL (See Comment)
[2022-11-07] MEDS ORDERED: Meropenem 500 MG in Sodium Chloride 0.9% 100 ML IVPB SCH ×2 (09:00→21:00)
[2022-11-07] MEDS: Senokot S 8.6-50 MG TAB PER TUBE SCH (09:54)
[2022-11-07] MEDS: Carvedilol 3.125 MG TAB PO SCH (09:54)
[2022-11-07] MEDS ORDERED: Norepinephrine 16 MG in Dextrose 5% in Water 234 ML IVPB PRN (10:30)
[2022-11-07 10:46] VITALS: BP 71/60
[2022-11-07 10:50] VITALS: TEMP 98.1
[2022-11-08 10:11] LABS: O2 Tension (PaO2), arterial 59.9 mmHg (80.0-100.0)
[2022-11-08 10:12] LABS: pH, Arterial 7.197 (7.35-7.45)
[2022-11-08 10:15] LABS: O2 Tension (PaO2), arterial 46.2 mmHg (80.0-100.0)
[2022-11-08] MEDS ORDERED: CEFAZOLIN 3 GM, Admixture Fee 1 EACH in Sodium Chloride 0.9% 100 ML IVPB SCH (17:00)
== END 2022-11-07 11:20 | disposition expired | DRG 853 ==
LOC: ERS 08:27 → CCU 10:52 → IMCU/EMU 10-21 10:29 → CCU 11-06 13:01
PROVIDERS: ADMIT Internal Medicine; ATTEND Internal Medicine
PROC: 4A133R1 Monitoring of Arterial Saturation, Peripheral, Percutaneous Approach (ICD-10-PCS; principal; 2022-10-13)
PROC: 0BH17EZ Insertion of Endotracheal Airway into Trachea, Via Natural or Artificial Opening (ICD-10-PCS; 2022-10-13)
PROC: 5A1955Z Respiratory Ventilation, Greater than 96 Consecutive Hours (ICD-10-PCS; 2022-10-13)
PROC: B24BZZ4 Ultrasonography of Heart with Aorta, Transesophageal (ICD-10-PCS; 2022-10-13)
PROC: 0DH67UZ Insertion of Feeding Device into Stomach, Via Natural or Artificial Opening (ICD-10-PCS; 2022-10-13)
PROC: 3E0G76Z Introduction of Nutritional Substance into Upper GI, Via Natural or Artificial Opening (ICD-10-PCS; 2022-10-13)
PROC: 02HV33Z Insertion of Infusion Device into Superior Vena Cava, Percutaneous Approach (ICD-10-PCS; 2022-10-14)
PROC: B548ZZA Ultrasonography of Superior Vena Cava, Guidance (ICD-10-PCS; 2022-10-14)
PROC: 3E043XZ Introduction of Vasopressor into Central Vein, Percutaneous Approach (ICD-10-PCS; 2022-10-14)
PROC: 3E03316 Introduction of Recombinant Human-activated Protein C into Peripheral Vein, Percutaneous (ICD-10-PCS; 2022-10-16)
PROC: 02HV33Z Insertion of Infusion Device into Superior Vena Cava, Percutaneous Approach (ICD-10-PCS; 2022-10-23)
PROC: 30233N1 Transfusion of Nonautologous Red Blood Cells into Peripheral Vein, Percutaneous Approach (ICD-10-PCS; 2022-10-25)
PROC: 03B80ZZ Excision of Left Brachial Artery, Open Approach (ICD-10-PCS; 2022-10-25)
PROC: 03L80ZZ Occlusion of Left Brachial Artery, Open Approach (ICD-10-PCS; 2022-10-25)
PROC: 5A1D70Z Performance of Urinary Filtration, Intermittent, Less than 6 Hours Per Day (ICD-10-PCS; 2022-10-28)
PROC: 0JH63XZ Insertion of Tunneled Vascular Access Device into Chest Subcutaneous Tissue and Fascia, Percutaneous Approach (ICD-10-PCS; 2022-10-28)
PROC: 02HV33Z Insertion of Infusion Device into Superior Vena Cava, Percutaneous Approach (ICD-10-PCS; 2022-10-28)
PROC: B5181ZA Fluoroscopy of Superior Vena Cava using Low Osmolar Contrast, Guidance (ICD-10-PCS; 2022-10-28)
PROC: B548ZZA Ultrasonography of Superior Vena Cava, Guidance (ICD-10-PCS; 2022-10-28)
PROC: 6A550Z2 Pheresis of Platelets, Single (ICD-10-PCS; 2022-10-29)
PROC: 0BH17EZ Insertion of Endotracheal Airway into Trachea, Via Natural or Artificial Opening (ICD-10-PCS; 2022-11-06)
PROC: 5A1935Z Respiratory Ventilation, Less than 24 Consecutive Hours (ICD-10-PCS; 2022-11-06)
PROC: 5A12012 Performance of Cardiac Output, Single, Manual (ICD-10-PCS; 2022-11-07)
DX: A41.01 Sepsis due to Methicillin susceptible Staphylococcus aureus (principal); D65 Disseminated intravascular coagulation [defibrination syndrome]; G93.41 Metabolic encephalopathy; I60.9 Nontraumatic subarachnoid hemorrhage, unspecified; I21.A1 Myocardial infarction type 2; N18.6 End stage renal disease; J96.01 Acute respiratory failure with hypoxia; R65.21 Severe sepsis with septic shock; J18.9 Pneumonia, unspecified organism; J69.0 Pneumonitis due to inhalation of food and vomit; I33.0 Acute and subacute infective endocarditis; E87.20 Acidosis, unspecified; N17.9 Acute kidney failure, unspecified; T82.838A Hemorrhage due to vascular prosthetic devices, implants and grafts, initial encounter; I50.20 Unspecified systolic (congestive) heart failure; I13.2 Hypertensive heart and chronic kidney disease with heart failure and with stage 5 chronic kidney disease, or end stage renal disease; I62.9 Nontraumatic intracranial hemorrhage, unspecified; D84.821 Immunodeficiency due to drugs; E27.40 Unspecified adrenocortical insufficiency; G72.81 Critical illness myopathy; N25.81 Secondary hyperparathyroidism of renal origin; I31.39 Other pericardial effusion (noninflammatory); J98.11 Atelectasis; I42.0 Dilated cardiomyopathy; D63.1 Anemia in chronic kidney disease; I08.3 Combined rheumatic disorders of mitral, aortic and tricuspid valves; Y83.8 Other surgical procedures as the cause of abnormal reaction of the patient, or of later complication, without mention of misadventure at the time of the procedure; G40.909 Epilepsy, unspecified, not intractable, without status epilepticus; E87.6 Hypokalemia; E16.2 Hypoglycemia, unspecified; E83.51 Hypocalcemia; E88.09 Other disorders of plasma-protein metabolism, not elsewhere classified; I45.10 Unspecified right bundle-branch block; M32.9 Systemic lupus erythematosus, unspecified; R13.12 Dysphagia, oropharyngeal phase; E87.5 Hyperkalemia; R53.81 Other malaise; R00.1 Bradycardia, unspecified; D70.9 Neutropenia, unspecified; I46.8 Cardiac arrest due to other underlying condition; I95.9 Hypotension, unspecified; R50.81 Fever presenting with conditions classified elsewhere; E03.9 Hypothyroidism, unspecified; Z99.2 Dependence on renal dialysis; Z88.1 Allergy status to other antibiotic agents; Z88.2 Allergy status to sulfonamides; Z87.01 Personal history of pneumonia (recurrent); Z79.52 Long term (current) use of systemic steroids; Z79.899 Other long term (current) drug therapy; Z79.890 Hormone replacement therapy; Z83.3 Family history of diabetes mellitus; Z80.9 Family history of malignant neoplasm, unspecified
CPT/HCPCS: 36415; 36416; 36430; 36600; 51701; 70450; 71045; 71250; 71275; 72129; 72132; 74018; 74177; 74230; 76881; 80048; 80053; 80061; 80202; 80306; 80307; 81003; 81015; 82533; 82553; 82805; 83605; 83690; 83735; 83880; 84439; 84443; 84484; 85014; 85018; 85025; 85049; 85384; 85610; 85652; 85730; 86140; 86706; 86850; 86900; 86901; 87040; 87070; 87071; 87077; 87086; 87149; 87186; 87205; 87340; 87449; 90935; 93005; 93010; 93306; 93312; 93970; 94002; 94003; 94660; 95712; 95816; 95819; 95957; 96361; 96365; 96375; A4217; C1752; C1776; C9113; G0257; J0171; J0295; J0611; J0613; J0690; J0692; J0696; J1580; J1642; J1644; J1720; J1953; J1956; J2001; J2060; J2185; J2248; J2250; J2272; J2370; J2405; J2700; J2704; J2720; J3010; J3370; J3370-JW; J3490; J7042; J7050; J7070; J7120; J7999; P9016; P9035; P9047; Q5105; Q9967; S0028